=== PATIENT | male | born 1980 | race Caucasian/White ===

== ENCOUNTER 2018-12-05 10:10 | Emergency (ER) | payer SELFPAY ==
[2018-12-05] MEDS: HYDROmorphone 0.5 MG/0.5 ML Syringe IVPUSH ONE (10:48)
[2018-12-05] MEDS: Aspirin 81 MG Tab.Chew PO ONE (10:49)
[2018-12-05] MEDS: Sodium Chloride 0.9% 10 ML Syringe FLUSH PRN (10:51)
--- NOTE | 2018-12-05 13:02 | EDM.PDOC ---
ED HPI GENERAL MEDICAL PROBLEM - General Chief Complaint: Chest Pain Stated Complaint: CHEST PAIN Time Seen by Provider: 12/05/18 10:20 Source of Information: Reports: Patient History Limitations: Reports: No Limitations - History of Present Illness INITIAL COMMENTS - FREE TEXT/NARRATIVE: The patient presents with chest pain. The pain is sharp and on the right side. It radiates to his back and he is short of breath with it at times. He has no fever, chills or cough. This has been going on for about 3 weeks. 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 He has no abdominal pain, nausea or vomiting. He has no swelling or pain in his legs. He has no history of PE or DVT. He does smoke. Onset: Gradual Duration: Week(s): (3) Location: Reports: Chest Quality: Reports: Sharp Severity: Moderate Improves with: Reports: None Worsens with: Reports: None Associated Symptoms: Reports: Chest Pain, Shortness of Breath. Denies: Cough, Fever/Chills, Headaches, Nausea/Vomiting Right Chest Pain Score (Numeric/FACES): 6 - Related Data Allergies Allergy/AdvReac Type Severity Reaction Status Date / Time No Known Allergies Allergy Verified 12/05/18 10:26 Home Meds: Home Meds Hydrocodone/Acetaminophen [Hydrocodon-Acetaminophn 10-325] 1 each PO QID PRN [History] Hydrocodone/Acetaminophen [Hydrocodon-Acetaminophen 5-325] 1 - 2 each PO Q6HR PRN #10 tablet 12/05/18 [Rx] Indomethacin 50 mg PO TID PRN #30 capsule 12/05/18 [Rx] Multivitamin [Multiple Vitamins] 1 each PO DAILY 12/05/18 [History] Past Medical History Other Cardiovascular History: 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 Respiratory History: Reports: SOB Gastrointestinal History: Reports: None Genitourinary History: Reports: None Musculoskeletal History: Reports: Back Pain, Chronic Neurological History: Reports: None Psychiatric History: Reports: Anxiety, Depression Endocrine/Metabolic History: Reports: None Hematologic History: Reports: None Immunologic History: Reports: None Oncologic (Cancer) History: Reports: None Dermatologic History: Reports: Other (See Below) Other Dermatologic History: lumps on forearms, spreading to face - Infectious Disease History Infectious Disease History: Reports: Chicken Pox - Past Surgical History Head Surgeries/Procedures: Reports: None HEENT Surgical History: Reports: Oral Surgery Social & Family History - Family History Family Medical History: Noncontributory - Tobacco Use Smoking Status *Q: Current Every Day Smoker Years of Tobacco use: 20 Packs/Tins Daily: 2 - Caffeine Use Caffeine Use: Reports: Coffee - Recreational Drug Use Recreational Drug Use: Yes Drug Use in Last 12 Months: Yes Recreational Drug Type: Reports: Marijuana/Hashish Recreational Drug Use Frequency: Daily ED ROS GENERAL - Review of Systems Review Of Systems: See Below Constitutional: Reports: No Symptoms HEENT: Reports: No Symptoms Respiratory: Reports: Shortness of Breath Cardiovascular: Reports: Chest Pain Endocrine: Reports: No Symptoms GI/Abdominal: Reports: No Symptoms : Reports: No Symptoms Musculoskeletal: Reports: No Symptoms ED EXAM, GENERAL - Physical Exam Exam: See Below Exam Limited By: No Limitations General Appearance: Alert, No Apparent Distress Ears: Normal External Exam Nose: Normal Inspection Head: Atraumatic, Normocephalic Neck: Normal Inspection Respiratory/Chest: No Respiratory Distress, Lungs Clear, Normal Breath Sounds Cardiovascular: Regular Rate, Rhythm, No Edema, No Murmur GI/Abdominal: Soft, Non-Tender, No Organomegaly, No Mass Back Exam: Normal Inspection Extremities: Normal Inspection EKG INTERPRETATION EKG Date: 12/05/18 Time: 10:17 Rhythm: NSR Rate (Beats/Min): 77 [place]: Normal P-Wave: Present QRS: Normal ST-T: Elevated (Inferior, anterior and lateral leads) QT: Normal [place]/PQ Interval: 1st degree HB Course - Vital Signs Last Recorded V/S: Last Vital Signs Temp 96.7 F 12/05/18 10:19 Pulse 80 12/05/18 10:19 Resp 22 H 12/05/18 10:19 BP 184/125 H 12/05/18 10:19 Pulse Ox 96 12/05/18 10:19 - Orders/Labs/Meds Orders: Active Orders 24 hr Category Date Time Status Cardiac Monitoring [RC] . DIRECTED Care 12/05/18 10:26 Active EKG Documentation Completion [RC] STAT Care 12/05/18 10:27 Active Peripheral IV Care [RC] . DIRECTED Care 12/05/18 10:27 Active Chest 1V Frontal [CR] Stat Exams 12/05/18 10:27 Taken Sodium Chloride 0.9% [Saline Flush] Med 12/05/18 10:26 Active 10 ml FLUSH ASDIRECTED PRN Peripheral IV Insertion Adult [OM.PC] Stat Oth 12/05/18 10:26 Ordered Medication Orders Sodium Chloride (Saline Flush) 10 ml FLUSH ASDIRECTED PRN PRN Reason: Keep Vein Open Last Admin: 12/05/18 10:51 Dose: 10 ml Labs: Laboratory Tests 12/05/18 12/05/18 12/05/18 Range/Units 10:45 10:45 10:45 WBC 7.90 (4.23-9.07) K/mm3 RBC 4.99 (4.63-6.08) M/mm3 Hgb 15.1 (13.7-17.5) gm/L Hct 43.3 (40.1-51.0) % MCV 86.8 (79.0-92.2) fl MCH 30.3 (25.7-32.2) pg MCHC 34.9 (32.2-35.5) g/dl RDW Std Deviation 41.6 (35.1-43.9) fL Plt Count 256 (163-337) K/mm3 MPV 10.1 (9.4-12.3) fl Neut % (Auto) 56.4 (34.0-67.9) % Lymph % (Auto) 32.7 (21.8-53.1) % [place] % (Auto) 8.2 (5.3-12.2) % Eos % (Auto) 2.3 (0.8-7.0) Baso % (Auto) 0.3 (0.1-1.2) % Neut # (Auto) 4.46 (1.78-5.38) K/mm3 Lymph # (Auto) 2.58 (1.32-3.57) K/mm3 [place] # (Auto) 0.65 (0.30-0.82) K/mm3 Eos # (Auto) 0.18 (0.04-0.54) K/mm3 Baso # (Auto) 0.02 (0.01-0.08) K/mm3 D-Dimer, Quantitative < 0.19 L (0.19-0.50) mg/L Sodium 139 (136-145) mEq/L Potassium 4.0 (3.5-5.1) mEq/L Chloride 105 (98-107) mEq/L Carbon Dioxide 24 (21-32) mEq/L Anion Gap 14.0 (5-15) BUN 17 (7-18) mg/dL Creatinine 0.8 (0.7-1.3) mg/dL Est Cr Clr Drug Dosing 160.88 mL/min Estimated GFR (MDRD) > 60 (>60) mL/min BUN/Creatinine Ratio 21.3 H (14-18) Glucose 98 (74-106) mg/dL Calcium 9.6 (8.5-10.1) mg/dL Total Bilirubin 0.6 (0.2-1.0) mg/dL AST 23 (15-37) U/L ALT 54 (16-63) U/L Alkaline Phosphatase 51 (46-116) U/L Troponin I < 0.017 (0.00-0.056) ng/mL Total Protein 8.1 (6.4-8.2) g/dl Albumin 4.4 (3.4-5.0) g/dl Globulin 3.7 gm/dL Albumin/Globulin Ratio 1.2 (1-2) Meds: Medications Generic Name Dose Route Start Last Admin Trade Name Freq PRN Reason Stop Dose Admin Sodium Chloride 10 ml 12/05/18 10:26 12/05/18 10:51 Saline Flush FLUSH 10 ml ASDIRECTED PRN Administration Keep Vein Open Discontinued Medications Generic Name Dose Route Start Last Admin Trade Name Freq PRN Reason Stop Dose Admin Aspirin 324 mg 12/05/18 10:26 12/05/18 10:49 Aspirin PO 12/05/18 10:27 324 mg ONETIME ONE Administration Hydromorphone HCl 0.5 mg 12/05/18 10:27 12/05/18 10:48 Dilaudid IVPUSH 12/05/18 10:28 0.5 mg ONETIME ONE Administration - Re-Assessments/Exams Free Text/Narrative Re-Assessment/Exam: 12/05/18 13:00 I ordered an IV saline lock, EKG, CXR, labs, aspirin and dilaudid. His EKG shows pericarditis. His CXR looks good. His CBC and CMP look good. His troponin is negative. His D-dimer is negative. I will get him on some indomethicin and I have ordered an echo for next Monday. Departure - Departure Time of Disposition: 13:05 Disposition: Home, Self-Care 01 Condition: Good Clinical Impression: Pericarditis Qualifiers: Pericarditis type: unspecified type Chronicity: acute Qualified Code(s): I30.9 - Acute pericarditis, unspecified Prescriptions: Hydrocodone/Acetaminophen [Hydrocodon-Acetaminophen 5-325] 1 - 2 each PO Q6HR PRN #10 tablet PRN Reason: Pain Indomethacin 50 mg PO TID PRN #30 capsule PRN Reason: Pain Referrals: Erin Fernandez, [facility] [Primary Care Provider] - Additional Instructions: Take the indomethacin every 8 hours as needed for pain. Take the hydrocodone as needed for pain. I have ordered an echocardiogram for 1pm on Monday. Please return if you are worse. - My Orders Last 24 Hours: My Active Orders 12/05/18 10:26 Cardiac Monitoring [RC] . DIRECTED Sodium Chloride 0.9% [Saline Flush] 10 ml FLUSH ASDIRECTED PRN Peripheral IV Insertion Adult [OM.PC] Stat 12/05/18 10:27 EKG Documentation Completion [RC] STAT Peripheral IV Care [RC] . DIRECTED Chest 1V Frontal [CR] Stat - Assessment/Plan Last 24 Hours: My Active Orders 12/05/18 10:26 Cardiac Monitoring [RC] . DIRECTED Sodium Chloride 0.9% [Saline Flush] 10 ml FLUSH ASDIRECTED PRN Peripheral IV Insertion Adult [OM.PC] Stat 12/05/18 10:27 EKG Documentation Completion [RC] STAT Peripheral IV Care [RC] . DIRECTED Chest 1V Frontal [CR] Stat
== END 2018-12-05 13:19 | disposition home or self-care (01) ==
LOC: JD.ED 10:10
DX: I30.9 Acute pericarditis, unspecified (principal); F17.210 Nicotine dependence, cigarettes, uncomplicated
CPT/HCPCS: 36415; 71045; 80053; 84484; 85025; 85379; 93005; 96374; 99285-25; A9270-GY; J1170

== ENCOUNTER 2018-12-06 14:07 | Emergency (ER) | payer SELFPAY ==
--- NOTE | 2018-12-06 14:41 | EDM.PDOC ---
ED HPI GENERAL MEDICAL PROBLEM - General Chief Complaint: Cardiovascular Problem Stated Complaint: [facility] Time Seen by Provider: 12/06/18 14:31 - History of Present Illness INITIAL COMMENTS - FREE TEXT/NARRATIVE: 38-year-old male presents with transient dizziness. Patient was seen here yesterday diagnosed with pericarditis. Started on Indocin and given [place] for pain. Patient had an episode sit on the couch 3 had sudden onset dizziness this lasted 45 seconds to a minute. It was not associated with change in position he was just sitting there. Patient is been eating and drinking normal. His chest pain isn't significantly worse. His significant past medical history of questionable mild heart attack at age 21 and he had endocarditis one or 2 bouts when he was younger related to get in his tongue pierced. Middle Chest Pain Score (Numeric/FACES): 6 - Related Data Allergies Allergy/AdvReac Type Severity Reaction Status Date / Time No Known Allergies Allergy Verified 12/05/18 10:26 Home Meds: Home Meds Hydrocodone/Acetaminophen [Hydrocodon-Acetaminophn 10-325] 1 each PO QID PRN [History] Hydrocodone/Acetaminophen [Hydrocodon-Acetaminophen 5-325] 1 - 2 each PO Q6HR PRN #10 tablet 12/05/18 [Rx] Indomethacin 50 mg PO TID PRN #30 capsule 12/05/18 [Rx] Multivitamin [Multiple Vitamins] 1 each PO DAILY 12/05/18 [History] Past Medical History Cardiovascular History: Reports: [place], Other (See Below) Other Cardiovascular History: 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 Pt diagnosed with pericarditis on 12/05/18. Pt states he had a [place] when he was 21. Respiratory History: Reports: SOB Gastrointestinal History: Reports: None Genitourinary History: Reports: None Musculoskeletal History: Reports: Back Pain, Chronic Neurological History: Reports: None Psychiatric History: Reports: Anxiety, Depression Endocrine/Metabolic History: Reports: None Hematologic History: Reports: None Immunologic History: Reports: None Oncologic (Cancer) History: Reports: None Dermatologic History: Reports: Other (See Below) Other Dermatologic History: lumps on forearms, spreading to face - Infectious Disease History Infectious Disease History: Reports: Chicken Pox - Past Surgical History Head Surgeries/Procedures: Reports: None HEENT Surgical History: Reports: Oral Surgery Social & Family History - Family History Family Medical History: Noncontributory - Tobacco Use Smoking Status *Q: Current Every Day Smoker Years of Tobacco use: 20 Packs/Tins Daily: 1 - Caffeine Use Caffeine Use: Reports: None - Recreational Drug Use Recreational Drug Type: Reports: Marijuana/Hashish ED ROS GENERAL - Review of Systems Review Of Systems: See Below Constitutional: Reports: No Symptoms Respiratory: Denies: Shortness of Breath Cardiovascular: Reports: Chest Pain. Denies: Dyspnea on Exertion, Edema Endocrine: Reports: No Symptoms GI/Abdominal: Reports: No Symptoms : Reports: No Symptoms Neurological: Reports: No Symptoms ED EXAM, GENERAL - Physical Exam Exam: See Below Exam Limited By: No Limitations General Appearance: Alert, No Apparent Distress Head: Atraumatic, Normocephalic Neck: Normal Inspection, Supple, Non-Tender, Full Range of Motion Respiratory/Chest: No Respiratory Distress, Lungs Clear, Normal Breath Sounds Cardiovascular: Normal Peripheral Pulses, Regular Rate, Rhythm, No Edema, No Murmur, No Rub GI/Abdominal: Normal Bowel Sounds, Soft, Non-Tender Course - Vital Signs Last Recorded V/S: Last Vital Signs Temp 36.4 C 12/06/18 14:12 Pulse 78 12/06/18 14:12 Resp 16 12/06/18 14:12 BP 161/93 H 12/06/18 14:12 Pulse Ox 98 12/06/18 14:12 - Orders/Labs/Meds Orders: Active Orders 24 hr Category Date Time Status EKG Documentation Completion [RC] ASDIRECTED Care 12/06/18 14:24 Active Chest 1V Frontal [CR] Stat Exams 12/06/18 15:12 Taken EKG 12 Lead [EK] Stat Ther 12/06/18 14:23 Ordered Labs: Laboratory Tests 12/06/18 12/06/18 12/06/18 Range/Units 14:43 14:43 14:43 WBC 7.56 (4.23-9.07) K/mm3 RBC 4.66 (4.63-6.08) M/mm3 Hgb 14.0 (13.7-17.5) gm/L Hct 40.3 (40.1-51.0) % MCV 86.5 (79.0-92.2) fl MCH 30.0 (25.7-32.2) pg MCHC 34.7 (32.2-35.5) g/dl RDW Std Deviation 39.8 (35.1-43.9) fL Plt Count 216 (163-337) K/mm3 MPV 10.0 (9.4-12.3) fl Neut % (Auto) 63.3 (34.0-67.9) % Lymph % (Auto) 27.6 (21.8-53.1) % [place] % (Auto) 5.2 L (5.3-12.2) % Eos % (Auto) 3.7 (0.8-7.0) Baso % (Auto) 0.1 (0.1-1.2) % Neut # (Auto) 4.78 (1.78-5.38) K/mm3 Lymph # (Auto) 2.09 (1.32-3.57) K/mm3 [place] # (Auto) 0.39 (0.30-0.82) K/mm3 Eos # (Auto) 0.28 (0.04-0.54) K/mm3 Baso # (Auto) 0.01 (0.01-0.08) K/mm3 ESR (0-15) mm/hr Sodium 137 Cancelled (136-145) mEq/L Potassium 4.0 Cancelled (3.5-5.1) mEq/L Chloride 106 Cancelled (98-107) mEq/L Carbon Dioxide 24 Cancelled (21-32) mEq/L Anion Gap 11.0 Cancelled (5-15) BUN 28 H Cancelled (7-18) mg/dL Creatinine 1.1 Cancelled (0.7-1.3) mg/dL Est Cr Clr Drug Dosing 117.00 Cancelled mL/min Estimated GFR (MDRD) > 60 Cancelled (>60) mL/min BUN/Creatinine Ratio 25.5 H Cancelled (14-18) Glucose 102 Cancelled (74-106) mg/dL Calcium 9.1 Cancelled (8.5-10.1) mg/dL Magnesium (1.8-2.4) mg/dl Total Bilirubin 0.3 (0.2-1.0) mg/dL AST 22 (15-37) U/L ALT 55 (16-63) U/L Alkaline Phosphatase 47 (46-116) U/L Troponin I < 0.017 (0.00-0.056) ng/mL C-Reactive Protein 0.3 (<1.0) mg/dL Total Protein 7.2 (6.4-8.2) g/dl Albumin 3.9 (3.4-5.0) g/dl Globulin 3.3 gm/dL Albumin/Globulin Ratio 1.2 (1-2) 12/06/18 12/06/18 Range/Units 14:43 14:43 WBC (4.23-9.07) K/mm3 RBC (4.63-6.08) M/mm3 Hgb (13.7-17.5) gm/L Hct (40.1-51.0) % MCV (79.0-92.2) fl MCH (25.7-32.2) pg MCHC (32.2-35.5) g/dl RDW Std Deviation (35.1-43.9) fL Plt Count (163-337) K/mm3 MPV (9.4-12.3) fl Neut % (Auto) (34.0-67.9) % Lymph % (Auto) (21.8-53.1) % [place] % (Auto) (5.3-12.2) % Eos % (Auto) (0.8-7.0) Baso % (Auto) (0.1-1.2) % Neut # (Auto) (1.78-5.38) K/mm3 Lymph # (Auto) (1.32-3.57) K/mm3 [place] # (Auto) (0.30-0.82) K/mm3 Eos # (Auto) (0.04-0.54) K/mm3 Baso # (Auto) (0.01-0.08) K/mm3 ESR 12 (0-15) mm/hr Sodium (136-145) mEq/L Potassium (3.5-5.1) mEq/L Chloride (98-107) mEq/L Carbon Dioxide (21-32) mEq/L Anion Gap (5-15) BUN (7-18) mg/dL Creatinine (0.7-1.3) mg/dL Est Cr Clr Drug Dosing mL/min Estimated GFR (MDRD) (>60) mL/min BUN/Creatinine Ratio (14-18) Glucose (74-106) mg/dL Calcium (8.5-10.1) mg/dL Magnesium 2.0 (1.8-2.4) mg/dl Total Bilirubin (0.2-1.0) mg/dL AST (15-37) U/L ALT (16-63) U/L Alkaline Phosphatase (46-116) U/L Troponin I (0.00-0.056) ng/mL C-Reactive Protein (<1.0) mg/dL Total Protein (6.4-8.2) g/dl Albumin (3.4-5.0) g/dl Globulin gm/dL Albumin/Globulin Ratio (1-2) - Re-Assessments/Exams Free Text/Narrative Re-Assessment/Exam: 12/06/18 15:16 We are unable to get an echo today however I did use her bedside echo and using the subxiphoid and parasternal views he has no appreciable pericardial effusion. 12/06/18 16:59 Chest x-ray is unremarkable labs nondiagnostic inflammatory markers not elevated. We will discharge home if he continues to have episodes like this Holter monitoring should be considered with a single isolated episode wouldn't pursue it now his labs are suggestive that he might be a little on the dry side we'll discuss this with the patient. Departure - Departure Time of Disposition: 17:00 Disposition: Home, Self-Care 01 Clinical Impression: Pericarditis Qualifiers: Pericarditis type: unspecified type Chronicity: acute Qualified Code(s): I30.9 - Acute pericarditis, unspecified Forms: ED Department Discharge Additional Instructions: Return to the emergency room with any questions or problems. Continue treatment as started yesterday Follow-up in the Hospital clinic early next week [phone] - My Orders Last 24 Hours: My Active Orders 12/06/18 14:23 EKG 12 Lead [EK] Stat 12/06/18 14:24 EKG Documentation Completion [RC] ASDIRECTED 12/06/18 15:12 Chest 1V Frontal [CR] Stat - Assessment/Plan Last 24 Hours: My Active Orders 12/06/18 14:23 EKG 12 Lead [EK] Stat 12/06/18 14:24 EKG Documentation Completion [RC] ASDIRECTED 12/06/18 15:12 Chest 1V Frontal [CR] Stat
--- NOTE | 2018-12-10 08:48 | CR ---
Chest: Portable view of the chest was obtained. Comparison: Prior chest x-ray of 12/05/18. Heart size and mediastinum are normal. Lungs are clear. Bony structures are grossly intact. Impression: 1. Nothing acute is appreciated on portable chest x-ray. Diagnostic code #1
== END 2018-12-06 17:17 | disposition home or self-care (01) ==
LOC: JD.ED 14:07
DX: I30.9 Acute pericarditis, unspecified (principal); I25.2 Old myocardial infarction; F17.210 Nicotine dependence, cigarettes, uncomplicated; Z79.899 Other long term (current) drug therapy
CPT/HCPCS: 36415; 71045; 71045-26; 80053; 83735; 84484; 85025; 85652; 86140; 93005; 93010; 99283; 99285-25

== ENCOUNTER 2018-12-14 20:03 | Emergency (ER) | payer SELFPAY ==
--- NOTE | 2018-12-14 21:08 | EDM.PDOC ---
ED HPI GENERAL MEDICAL PROBLEM - General Chief Complaint: Cardiovascular Problem Stated Complaint: HEART PALPATATIONS/DIZZY Time Seen by Provider: 12/14/18 20:22 Source of Information: Reports: Patient, Significant Other (Girlfriend) History Limitations: Reports: No Limitations - History of Present Illness INITIAL COMMENTS - FREE TEXT/NARRATIVE: Mr. Casanova is a 38-year-old man with a past medical history significant for hypertension, dyslipidemia, anxiety, and depression, all untreated. He also has chronic lower back pain, for which he sees a pain cytology laboratory manager. He states that he developed the sensation of a fast irregular, and hard heartbeat, along with lightheaded when standing, that developed about one hour prior to coming to the ED. He states that the palpitations persist even now, here in the ED, although it is noted that he has a normal sinus rhythm at 80 bpm on the council member. Review of prior medical records finds that the patient has been to this emergency department on 5 prior occasions with similar symptoms since 2018. He was diagnosed with pericarditis on 12/05/2018 and prescribed indomethacin, however, he states that his symptoms have not improved. The patient has not followed up with the PCP, citing lack of medical insurance. The patient does not have a PCP. His pain cytology laboratory manager is Erin Fernandez NP. Left Chest Pain Score (Numeric/FACES): 4 - Related Data Allergies Allergy/AdvReac Type Severity Reaction Status Date / Time No Known Allergies Allergy Verified 12/14/18 20:16 Home Meds: Home Meds Hydrocodone/Acetaminophen [Hydrocodon-Acetaminophn 10-325] 1 each PO QID PRN [History] Indomethacin 50 mg PO TID PRN #30 capsule 12/05/18 [Rx] Multivitamin [Multiple Vitamins] 1 each PO DAILY 12/05/18 [History] Past Medical History Cardiovascular History: Reports: Bacterial Endocarditis (21 years old), High Cholesterol (untreated), Hypertension (untreated) Psychiatric History: Reports: Anxiety (untreated), Depression (untreated) - Infectious Disease History Infectious Disease History: Reports: Chicken Pox - Past Surgical History HEENT Surgical History: Reports: Oral Surgery (wisdom teeth extraction) Cardiovascular Surgical History: Reports: Other (See Below) (coronary angiogram at 21 years old -> normal) Social & Family History - Family History Family Medical History: Noncontributory - Tobacco Use Smoking Status *Q: Current Every Day Smoker Years of Tobacco use: 24 Packs/Tins Daily: 1 Packs/Tins Daily Comment: Down from 1.5 ppd - Caffeine Use Caffeine Use: Reports: None - Alcohol Use Alcohol Use History: Yes Alcohol Use Frequency: Rarely - Recreational Drug Use Recreational Drug Use: Yes Drug Use in Last 12 Months: Yes Recreational Drug Type: Reports: LSD (Acid) (last took 2017), Marijuana/Hashish (smokes daily), Methamphetamine (smoked once when 24 years old), Psilocybin ( Mushrooms) (last ate 2018), Other (see below) (Opioids - takes daily) - Living Situation & Occupation Living situation: Reports: Single, with Significant Other (Girlfriend) Occupation: Employed (Cook at [employer]) ED ROS GENERAL - Review of Systems Review Of Systems: ROS reveals no pertinent complaints other than HPI. Musculoskeletal: Reports: Back Pain (chronic) ED EXAM, GENERAL - Physical Exam Exam: See Below Exam Limited By: No Limitations General Appearance: Alert, WD/WN, No Apparent Distress Eye Exam: Bilateral Eye: EOMI, Normal Inspection Ears: Normal External Exam, Hearing Grossly Normal Nose: Normal Inspection Throat/Mouth: Normal Inspection, Normal Lips, Normal Voice, No Airway Compromise Head: Atraumatic, Normocephalic Neck: Normal Inspection, Full Range of Motion Respiratory/Chest: No Respiratory Distress, Lungs Clear, Normal Breath Sounds, No Accessory Muscle Use, Other (Reproducible tenderness to the patient of the left pectoralis muscle. Pain is also reproduced somewhat by having the patient press his hands together with his arms outstretched in front of his chest.) Cardiovascular: Normal Peripheral Pulses, Regular Rate, Rhythm, No Edema, No Gallop, No JVD, No Murmur, No Rub Peripheral Pulses: 4+: Radial (L), Radial (R) GI/Abdominal: Normal Bowel Sounds, Soft, Non-Tender, No Organomegaly, No Distention, No Abnormal Bruit, No Mass (Male) Exam: Deferred Rectal (Males) Exam: Deferred Back Exam: Normal Inspection, Full Range of Motion, NT Extremities: Normal Inspection, Normal Range of Motion, No Pedal Edema, Normal Capillary Refill Neurological: Alert, Oriented, Normal Cognition, No Motor/Sensory Deficits Psychiatric: Normal Affect Skin Exam: Warm, Dry, Intact, Normal Color, No Rash EKG INTERPRETATION EKG Date: 12/14/18 Time: 20:13 Rhythm: NSR Rate (Beats/Min): 72 [place]: RAD-Right [place] Deviation P-Wave: Present (1 AVB) QRS: Wide (LPFB? Late transition.) ST-T: Normal (Anterolateral J-point elevation, but no T-wave inversions or ischemic changes.) QT: Normal Comparison: No Change (12/06/2018) Course - Vital Signs Last Recorded V/S: Last Vital Signs Temp 36.2 C 12/14/18 20:12 Pulse 77 12/14/18 20:12 Resp 14 12/14/18 20:12 BP 166/96 H 12/14/18 20:12 Pulse Ox 96 12/14/18 20:12 Orthostatic Blood Pressure [ 136/88 Standing] Orthostatic Blood Pressure [ 133/75 Supine] - Re-Assessments/Exams Free Text/Narrative Re-Assessment/Exam: 12/14/18 21:04 Because of the patient's complaint of palpitations, an ECG was obtained at triage. It demonstrates some mild J-point elevation in leads V1-V6, but none seen in the inferior or high-lateral leads. Because of the patient's complaint of lightheadedness, particularly when standing, I ordered orthostatics. They are negative. 12/14/18 21:24 Since 10/10/2018, the patient has been seen in this emergency department on numerous occasions for the same complaint - this is now his 6th visit - and has had at various times a CBC, CMP, magnesium level, troponin level, CRP, D-dimer, TSH level, chest x-ray, and ECG performed, all of which have been unremarkable. He was told on 12/05/2018 that he had pericarditis, however, after reviewing his ECG and prior evaluations, I don't believe that is the case. His CRP has been undetectably low, which would not be consistent with viral pericarditis, and he underwent a bedside echocardiogram on 12/06/2018, which was negative. He did not undergo the outpatient echocardiogram that was scheduled for him on 12/10/2018. Additionally, he reports no improvement in his symptoms despite taking indomethacin. Importantly, however, is that his symptoms are not really consistent with pericarditis. He reports palpitations and lightheadedness with standing. The chest pain that he initially reported was on the right side of his chest, not central or left-sided, although it has since now moved to his far left side, however, it is reproducible with palpation of his left pectoralis muscle. The patient complains of palpitations, a fast, irregular, hard sensation, and stated that he was experiencing it while I was examining him , yet he had a normal sinus rhythm at 80 bpm on the monitor at the time, and none of his ECGs that he has had performed so far have shown anything other than a normal sinus rhythm. I believe that the patient's chest pain is musculoskeletal in etiology. I cannot explain his palpitations and dizziness, but they do not appear to be physiologic in origin. They are likely related to his untreated anxiety. I do not see any testing that has been missed here in the emergency department, therefore I don't see anything else that I can offer him, other than to again recommend that he follow-up in the outpatient setting. 12/14/18 22:54 The above was discussed with the patient and his girlfriend. I explained that the diagnostic ability of the emergency department has been exhausted, and further workup will need to be done as an outpatient. I will have case management contact the patient on 12/17/2018, to see if some arrangements to be made for the patient to see a PCP, or at least discuss payment options. Departure - Departure Time of Disposition: 22:58 Disposition: Home, Self-Care 01 Condition: Good Clinical Impression: Musculoskeletal chest pain, Palpitations, Dizziness - Discharge Information *PRESCRIPTION DRUG MONITORING PROGRAM REVIEWED*: Not Applicable *COPY OF PRESCRIPTION DRUG MONITORING REPORT IN PATIENT KHOI: Not Applicable Instructions: Nonspecific Chest Pain, [id number], Palpitations, [id number] , Musculoskeletal Pain, Dizziness, [id number] Referrals: Holger Barajas MD [Physician] - Erin Fernandez NP [Ordering Only Provider] - Forms: ED Department Discharge Additional Instructions: You were seen in the emergency room for recurrent palpitations, dizziness, and left-sided chest pain. Workup in the ER included positional blood pressure checks and an ECG, both of which were normal. You are not dehydrated, and no abnormalities were found on your ECG. On examination, your left-sided chest pain was reproducible by pressing on your left pectoralis muscle, indicating a musculoskeletal cause. The cause of your palpitations and dizziness is unclear, but they do not appear to be physiologic, that is, while you are feeling an irregular heart beat, your heart rate was completely normal on the newspaper reporter and on your ECGs. Your prior medical records and tests were reviewed, and no abnormalities have been found. As discussed, the diagnostic ability of the emergency department has been exhausted. You need to see a PCP. We recommend that you follow-up with Dr. Holger Hernandez in the clinic at the next available appointment. Someone from case management will contact you on 12/17/2018, to discuss payment options. If any other problems, please do not hesitate to return to the ER.
== END 2018-12-14 23:16 | disposition home or self-care (01) ==
LOC: JD.ED 20:03
DX: R00.2 Palpitations (principal); R07.89 Other chest pain; I10 Essential (primary) hypertension; F17.210 Nicotine dependence, cigarettes, uncomplicated
CPT/HCPCS: 93005; 99284-25

== ENCOUNTER 2019-04-29 09:45 | Emergency (ER) | payer BC ==
[2019-04-29] MEDS ORDERED: Alum Hydrox/Mag Hydrox/Simeth 30 ML, Lidocaine 2% 15 ML PO ONE ×2 (10:46)
[2019-04-29] MEDS ORDERED: Sodium Chloride 0.9% 1,000 ML IV ONE (11:23)
--- NOTE | 2019-04-29 11:31 | EDM.PDOC ---
ED HPI GENERAL MEDICAL PROBLEM - General Chief Complaint: Chest Pain Stated Complaint: CHEST PAIN/SOB Time Seen by Provider: 04/29/19 10:56 Source of Information: Reports: Patient, RN Notes Reviewed History Limitations: Reports: No Limitations - History of Present Illness INITIAL COMMENTS - FREE TEXT/NARRATIVE: Patient is a 39-year-old male who presents to the ED for the evaluation of some ongoing chest pain or shortness of breath. Patient notes that this is been going on for a few months, but he has not had it evaluated by a doctor before. He notes that it did worsen over the last few days however. He is complaining of shortness of breath that seems to be constant, there are no modifiers to this however he states when he does move around it is worse. Chest pain is described as sharp at times with also a dull ache/pressure component that is there pretty much all the time as well. He notes this is in his mid sternal chest and radiates to his mid left chest. He can appreciate some tingling in his fingers at times with this as well. He states he had a little bit of nausea this morning, but states this is somewhat normal for him as he takes a lot of pain meds and he normally has nausea. The patient states that recently when he goes from a sitting to standing position, he gets increased shortness of breath, he states that he can feel his heartbeat in his ears, and has slight dizziness and ear ringing upon standing. He believes that his heart rate does shoot up at times anywhere from 120-130 when he stands. He further notes a issue with blood pressure that is been elevated, but he takes no medication for this. At initial time of triage his blood pressure was 176/117, but after resting in the ER waiting for evaluation, his blood pressure is 137/86. Patient notes a history of prior pericarditis, but he states he did not have this evaluated or treated as he did not have insurance at the time. Patient thought maybe had a little bit of heartburn so he was given a GI cocktail at time of triage as well, he states that this helped the heartburn type feelings, but is still having the pressure sensation in his chest. He notes that the pressure feels better when he is sitting up or inclined, and worsens with laying. Chest Pain Score (Numeric/FACES): 6 - Related Data Allergies Allergy/AdvReac Type Severity Reaction Status Date / Time No Known Allergies Allergy Verified 04/29/19 09:53 Home Meds: Home Meds Hydrocodone/Acetaminophen [Hydrocodon-Acetaminophn 10-325] 10 - 325 mg PO ASDIRECTED PRN 10/10/18 [History] Cyclobenzaprine [Flexeril] 10 mg PO BEDTIME 04/29/19 [History] Past Medical History Cardiovascular History: Reports: Bacterial Endocarditis, High Cholesterol, Hypertension, Other (See Below) Other Cardiovascular History: 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 Pt diagnosed with pericarditis on 12/05/18. Pt states he had a IL when he was 21. Respiratory History: Reports: SOB Gastrointestinal History: Reports: GERD Musculoskeletal History: Reports: Back Pain, Chronic, Fracture Neurological History: Reports: Concussion Psychiatric History: Reports: Anxiety, Depression Dermatologic History: Reports: Other (See Below) Other Dermatologic History: lumps on forearms, spreading to face - Infectious Disease History Infectious Disease History: Reports: Chicken Pox - Past Surgical History HEENT Surgical History: Reports: Oral Surgery Other HEENT Surgeries/Procedures: wisdom teeth removed. 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 Denies: Fever Respiratory: Reports: Shortness of Breath (constant). Denies: Cough Cardiovascular: Reports: Chest Pain (Mid central CP to L mid axillary CP), Blood Pressure Problem (HTN for years, untreated), Dyspnea on Exertion, Palpitations (feels heart racing from time to time) GI/Abdominal: Reports: Nausea. Denies: Abdominal Pain, Constipation, Diarrhea, Vomiting : Denies: Dysuria Musculoskeletal: Reports: Back Pain (chronic) Neurological: Reports: Tingling (into L arm) ED EXAM, GENERAL - Physical Exam Exam: See Below Exam Limited By: No Limitations General Appearance: Alert, WD/WN, No Apparent Distress Eye Exam: Bilateral Eye: EOMI, Normal Inspection, PERRL Nose: Normal Inspection Throat/Mouth: Normal Inspection, Normal Lips, Normal Teeth, Normal Gums, Normal Oropharynx, Normal Voice, No Airway Compromise Head: Atraumatic, Normocephalic Neck: Normal Inspection Respiratory/Chest: No Respiratory Distress, Lungs Clear, Normal Breath Sounds, No Accessory Muscle Use, Chest Non-Tender Cardiovascular: Normal Peripheral Pulses, Regular Rate, Rhythm, No Edema, No Murmur Peripheral Pulses: 3+: Radial (L), Radial (R) GI/Abdominal: Normal Bowel Sounds, Soft, Non-Tender, No Distention, No Mass Extremities: Normal Inspection, Normal Capillary Refill Neurological: Alert, Oriented, Normal Cognition, No Motor/Sensory Deficits Psychiatric: Normal Affect, Normal Mood Skin Exam: Warm, Dry, Intact, Normal Color, No Rash EKG INTERPRETATION EKG Date: 04/29/19 Time: 09:55 Rhythm: NSR Rate (Beats/Min): 97 [place]: RAD-Right [place] Deviation P-Wave: Present QRS: Normal ST-T: Normal QT: Normal Comparison: NA - No Prior EKG EKG Interpretation Comments: No acute ischemic changes noted by myself or Dr. Yepez. Course - Vital Signs Last Recorded V/S: Last Vital Signs Temp 98.3 F 04/29/19 09:50 Pulse 96 04/29/19 09:50 Resp 14 04/29/19 09:50 BP 176/117 H 04/29/19 09:50 Pulse Ox 99 04/29/19 09:50 - Orders/Labs/Meds Orders: Active Orders 24 hr Category Date Time Status EKG 12 Lead [EKG Documentation Completion] [RC] STAT Care 04/29/19 10:19 Active Holter Monitor 48 Hours [RC] .PRN Care 04/29/19 14:33 Active Labs: Laboratory Tests 04/29/19 04/29/19 04/29/19 Range/Units 10:05 10:05 13:31 WBC 7.68 (4.23-9.07) K/mm3 RBC 4.94 (4.63-6.08) M/mm3 Hgb 15.2 (13.7-17.5) gm/dl Hct 43.4 (40.1-51.0) % MCV 87.9 (79.0-92.2) fl MCH 30.8 (25.7-32.2) pg MCHC 35.0 (32.2-35.5) g/dl RDW Std Deviation 40.5 (35.1-43.9) fL Plt Count 235 (163-337) K/mm3 MPV 10.3 (9.4-12.3) fl Neut % (Auto) 45.2 (34.0-67.9) % Lymph % (Auto) 40.5 (21.8-53.1) % [place] % (Auto) 9.0 (5.3-12.2) % Eos % (Auto) 4.6 (0.8-7.0) Baso % (Auto) 0.4 (0.1-1.2) % Neut # (Auto) 3.48 (1.78-5.38) K/mm3 Lymph # (Auto) 3.11 (1.32-3.57) K/mm3 [place] # (Auto) 0.69 (0.30-0.82) K/mm3 Eos # (Auto) 0.35 (0.04-0.54) K/mm3 Baso # (Auto) 0.03 (0.01-0.08) K/mm3 Sodium 139 (136-145) mEq/L Potassium 4.1 (3.5-5.1) mEq/L Chloride 103 (98-107) mEq/L Carbon Dioxide 24 (21-32) mEq/L Anion Gap 16.1 H (5-15) BUN 17 (7-18) mg/dL Creatinine 0.9 (0.7-1.3) mg/dL Est Cr Clr Drug Dosing 137.97 mL/min Estimated GFR (MDRD) > 60 (>60) mL/min BUN/Creatinine Ratio 18.9 H (14-18) Glucose 99 (74-106) mg/dL Calcium 10.2 H (8.5-10.1) mg/dL Total Bilirubin 0.2 (0.2-1.0) mg/dL AST 27 (15-37) U/L ALT 69 H (16-63) U/L Alkaline Phosphatase 39 L (46-116) U/L CK-MB (CK-2) 1.2 (0-3.6) ng/ml Troponin I < 0.017 < 0.017 (0.00-0.056) ng/mL Total Protein 7.9 (6.4-8.2) g/dl Albumin 4.1 (3.4-5.0) g/dl Globulin 3.8 gm/dL Albumin/Globulin Ratio 1.1 (1-2) Meds: Medications Discontinued Medications Generic Name Dose Route Start Last Admin Trade Name Catrachita PRN Reason Stop Dose Admin Al Hydroxide/Mg Hydroxide 30 0 ml 04/29/19 10:46 04/29/19 10:50 ml/ Lidocaine HCl 15 ml PO 04/29/19 10:47 45 ml ONETIME ONE Administration Sodium Chloride 1,000 mls @ 999 mls/hr 04/29/19 11:23 04/29/19 11:33 Normal Saline IV 04/29/19 12:23 999 mls/hr ONETIME ONE Administration - Re-Assessments/Exams Free Text/Narrative Re-Assessment/Exam: 04/29/19 11:32 Patient presents to the ED for the evaluation of chest pain or shortness of breath. EKG done at time of triage does not show any obvious ST ischemia. The patient's labs done at time of triage also demonstrate no obvious abnormalities , troponin is normal and CK-MB is also normal. At this time his pain does sound kind of like pericarditis in nature again however due to him saying that he gets dizzy and lightheaded when he stands, I will give him a bag IV fluids see if this does not help. He states that the GI cocktail helped the heartburn but did not help the chest burning sensation. I will likely discharge him home with a Holter monitor, after a second set of troponins is normal, and have him follow-up with a primary care provider of choice so he can get a stress test ordered, and have a further cardiology work-up. 04/29/19 14:38 Patient second troponin is negative. Will discharge him home with a 48-hour Holter, and he will have a follow-up appoint with Tiffany Neely in the clinic next week Monday the at 9:15am. Departure - Departure Time of Disposition: 14:39 Disposition: Home, Self-Care 01 Condition: Fair Clinical Impression: Chest pain in adult Instructions: Nonspecific Chest Pain, [id number], Aspirin and Your Heart Referrals: Erin Fernandez NP [Primary Care Provider] - Forms: ED Department Discharge, ED Return to Work/School Form Additional Instructions: You were evaluated in the ER today regarding your ongoing chest pain. Your work-up at today's ER visit was unremarkable for any sort of ischemic heart issues that you may have, you are not suffering from a myocardial infarction today. You were provided with a Holter monitor, to wear over the next 48 hours to monitor your heart rhythm. You will need to follow-up with a family practice provider, an appointment was made for you with Tiffany Neely for May 08, they request that you check in at 9:15 AM to go over paperwork and questions, as this is your first visit. Further recommend you talk with her regarding outpatient stress tests for further cardiac evaluation as warranted. You may try to take 600 mg ibuprofen every 6 hours for further chest discomfort. Do not exceed 3200 mg of ibuprofen in a 24-hour time span. Please return to the ER at any time however if her symptoms change or worsen. Sepsis Event Note - Evaluation Sepsis Screening Result: No Definite Risk - Focused Exam Vital Signs: Vital Signs Temp Pulse Resp BP Pulse Ox 04/29/19 09:50 98.3 F 96 14 176/117 H 99 Date Exam was Performed: 04/29/19 Time Exam was Performed: 15:18 - My Orders Last 24 Hours: My Active Orders 04/29/19 10:19 EKG 12 Lead [EKG Documentation Completion] [RC] STAT 04/29/19 14:33 Holter Monitor 48 Hours [RC] .PRN - Assessment/Plan Last 24 Hours: My Active Orders 04/29/19 10:19 EKG 12 Lead [EKG Documentation Completion] [RC] STAT 04/29/19 14:33 Holter Monitor 48 Hours [RC] .PRN
--- NOTE | 2019-04-29 11:54 | CR ---
Chest: Two views of the chest were obtained. Comparison: Prior chest x-ray of 12/06/18. Heart size and mediastinum are normal. Lungs are clear. Bony structures appear within normal limits. Impression: 1. Nothing acute is identified on two-view chest x-ray. Diagnostic code #1 This report was dictated in [place] Standard Time
== END 2019-04-29 15:21 | disposition home or self-care (01) ==
LOC: JD.ED 09:45
DX: R07.9 Chest pain, unspecified (principal); I10 Essential (primary) hypertension; I25.2 Old myocardial infarction; F17.210 Nicotine dependence, cigarettes, uncomplicated
CPT/HCPCS: 36415; 71046; 80053; 82553; 84484; 85025; 93005; 93225; 93226; 96360; 99285; A9270; J7030; 93010; 99284

== ENCOUNTER 2019-05-02 21:58 | Emergency (ER) | payer BC ==
--- NOTE | 2019-05-03 00:44 | EDM.PDOC ---
ED HPI GENERAL MEDICAL PROBLEM - General Chief Complaint: Cardiovascular Problem Stated Complaint: sob elevated heart rate and blood pressure Time Seen by Provider: 05/02/19 23:55 Source of Information: Reports: Patient, Significant Other (Girlfriend) History Limitations: Reports: No Limitations - History of Present Illness INITIAL COMMENTS - FREE TEXT/NARRATIVE: Mr. Casanova is a very pleasant 39-year-old man with a past medical history significant for untreated hypertension, elevated cholesterol, anxiety and depression, along with chronic pain, for which he is on a fentanyl patch and oral [place], who states that he developed dyspnea and rapid palpitations while at work today. He states that he has been experiencing similar symptoms over the past 2 weeks, but that they have been worse this week. He states that he developed a headache around 09:00, along with facial tingling and a rushing sound in his right ear. He developed tunnel vision, and felt like he might faint. No nausea or vomiting. No recent cough. The patient states that he thought his blood pressure was elevated, and that that was what was causing his symptoms. Review of prior medical records finds that this is the patient's 8th visit to this ED with the same or similar symptoms since 10/10/2018, with the most recent visit on 04/29/2019. At that visit, the patient was discharged home with a 48- hour Holter monitor. He states that he already turned the monitor in, and he is to follow-up with Rowena HOLDEN, on 05/08/2019 at 09:15, to get the results. The patient states that he has been told in the past to talk to his PCP about getting treatment for his anxiety, however, he does not have a PCP, and his pain management provider told him that she does not prescribe medicines for anxiety. He states that he recently acquired medical insurance, therefore he can now follow-up with a PCP. Here in the ED, the patient's BP is noted to be elevated at 182/107, with a HR of 107 bpm. The patient does not have a PCP, but, as above, he is scheduled to follow-up with ADINA Kumar, on 05/08/2019 at 09:15. His pain management provider is rEin Fernandez NP. Headache Pain Score (Numeric/FACES): 1 - Related Data Allergies Allergy/AdvReac Type Severity Reaction Status Date / Time No Known Allergies Allergy Verified 04/29/19 09:53 Home Meds: Home Meds Hydrocodone/Acetaminophen [Hydrocodon-Acetaminophn 10-325] 10 - 325 mg PO ASDIRECTED PRN 10/10/18 [History] Cyclobenzaprine [Flexeril] 10 mg PO BEDTIME 04/29/19 [History] fentaNYL [Fentanyl] 1 each TD ASDIRECTED 05/02/19 [History] Past Medical History Cardiovascular History: Reports: Bacterial Endocarditis (when 21 yrs old), High Cholesterol (untreated), Hypertension (untreated), Other (See Below) ( Pericarditis) Other Cardiovascular History: 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 Pt diagnosed with pericarditis on 12/05/18. Pt states he had a NH when he was 21. Respiratory History: Reports: SOB Gastrointestinal History: Reports: GERD Musculoskeletal History: Reports: Back Pain, Chronic, Fracture Neurological History: Reports: Concussion Psychiatric History: Reports: Anxiety (untreated), Depression (untreated) Dermatologic History: Reports: Other (See Below) Other Dermatologic History: lumps on forearms, spreading to face - Infectious Disease History Infectious Disease History: Reports: Chicken Pox - Past Surgical History HEENT Surgical History: Reports: Oral Surgery (wisdom teeth extraction) Cardiovascular Surgical History: Reports: Other (See Below) (Coronary angiogram at 21 yrs old -> normal) Social & Family History - Family History Family Medical History: Noncontributory - Tobacco Use Smoking Status *Q: Current Every Day Smoker Years of Tobacco use: 25 Packs/Tins Daily: 1 Packs/Tins Daily Comment: Down from 1.5 ppd - Caffeine Use Caffeine Use: Reports: Coffee - Alcohol Use Alcohol Use History: Yes Alcohol Use Frequency: Rarely - Recreational Drug Use Recreational Drug Use: Yes Drug Use in Last 12 Months: Yes Recreational Drug Type: Reports: LSD (Acid) (last took 2017), Marijuana/Hashish (last smoked Oct 2018), Methamphetamine (smoked once when 24 yrs old), Psilocybin (Mushrooms) (last took 2017), Other (see below) (Takes opioids daily) - Living Situation & Occupation Living situation: Reports: Single, with Significant Other (Girlfriend) Occupation: Employed ([employer]) ED ROS GENERAL - Review of Systems Review Of Systems: Comprehensive ROS is negative, except as noted in HPI. ED EXAM, GENERAL - Physical Exam Exam: See Below Exam Limited By: No Limitations General Appearance: Alert, WD/WN, No Apparent Distress Eye Exam: Bilateral Eye: EOMI, Normal Inspection Ears: Normal External Exam, Normal Canal, Hearing Grossly Normal, Normal TMs Nose: Normal Inspection, Normal Mucosa, No Blood Throat/Mouth: Normal Inspection, Normal Lips, Normal Teeth, Normal Gums, Normal Oropharynx, Normal Voice, No Airway Compromise Head: Atraumatic, Normocephalic Neck: Normal Inspection, Supple, Non-Tender, Full Range of Motion. No: Lymphadenopathy (L), Lymphadenopathy (R) Respiratory/Chest: No Respiratory Distress, Lungs Clear, Normal Breath Sounds, No Accessory Muscle Use. No: Decreased Breath Sounds, Crackles, Rhonchi, Wheezing, Stridor, Prolonged Expiration Cardiovascular: Normal Peripheral Pulses, Regular Rate, Rhythm, No Edema, No Gallop, No JVD, No Murmur, No Rub Peripheral Pulses: 4+: Radial (L), Radial (R) GI/Abdominal: Normal Bowel Sounds, Soft, Non-Tender, No Organomegaly, No Distention, No Abnormal Bruit, No Mass (Male) Exam: Deferred Rectal (Males) Exam: Deferred Back Exam: Normal Inspection, Full Range of Motion, NT Extremities: Normal Inspection, Normal Range of Motion, No Pedal Edema, Normal Capillary Refill Neurological: Alert, Oriented, Normal Cognition, No Motor/Sensory Deficits Psychiatric: Normal Affect Skin Exam: Warm, Dry, Intact, Normal Color, No Rash EKG INTERPRETATION EKG Date: 05/02/19 Time: 22:07 Rhythm: NSR Rate (Beats/Min): 97 [place]: RAD-Right [place] Deviation (likely 2 LPFB) P-Wave: Present (1 AVB) QRS: Normal ST-T: Normal QT: Normal Comparison: No Change (04/29/2019) Course - Vital Signs Last Recorded V/S: Last Vital Signs Temp 37.2 C 05/02/19 22:03 Pulse 107 H 05/02/19 22:03 Resp 16 05/02/19 22:03 BP 182/107 H 05/02/19 22:03 Pulse Ox 97 05/02/19 22:03 - Orders/Labs/Meds Labs: Laboratory Tests 05/02/19 05/02/19 Range/Units 23:48 23:48 WBC 8.69 (4.23-9.07) K/mm3 RBC 4.51 L (4.63-6.08) M/mm3 Hgb 13.8 (13.7-17.5) gm/dl Hct 40.2 (40.1-51.0) % MCV 89.1 (79.0-92.2) fl MCH 30.6 (25.7-32.2) pg MCHC 34.3 (32.2-35.5) g/dl RDW Std Deviation 41.2 (35.1-43.9) fL Plt Count 250 (163-337) K/mm3 MPV 10.0 (9.4-12.3) fl Neut % (Auto) 48.9 (34.0-67.9) % Lymph % (Auto) 37.7 (21.8-53.1) % Bureau % (Auto) 7.8 (5.3-12.2) % Eos % (Auto) 5.2 (0.8-7.0) Baso % (Auto) 0.2 (0.1-1.2) % Neut # (Auto) 4.24 (1.78-5.38) K/mm3 Lymph # (Auto) 3.28 (1.32-3.57) K/mm3 Bureau # (Auto) 0.68 (0.30-0.82) K/mm3 Eos # (Auto) 0.45 (0.04-0.54) K/mm3 Baso # (Auto) 0.02 (0.01-0.08) K/mm3 Sodium 136 (136-145) mEq/L Potassium 3.5 (3.5-5.1) mEq/L Chloride 100 (98-107) mEq/L Carbon Dioxide 24 (21-32) mEq/L Anion Gap 15.5 H (5-15) BUN 26 H (7-18) mg/dL Creatinine 1.0 (0.7-1.3) mg/dL Est Cr Clr Drug Dosing 124.17 mL/min Estimated GFR (MDRD) > 60 (>60) mL/min BUN/Creatinine Ratio 26.0 H (14-18) Glucose 141 H (74-106) mg/dL Calcium 8.8 (8.5-10.1) mg/dL Total Bilirubin 0.3 (0.2-1.0) mg/dL AST 24 (15-37) U/L ALT 67 H (16-63) U/L Alkaline Phosphatase 45 L (46-116) U/L Troponin I < 0.017 (0.00-0.056) ng/mL Total Protein 7.3 (6.4-8.2) g/dl Albumin 3.8 (3.4-5.0) g/dl Globulin 3.5 gm/dL Albumin/Globulin Ratio 1.1 (1-2) - Re-Assessments/Exams Free Text/Narrative Re-Assessment/Exam: 05/03/19 00:43 This is the 8th visit to this ED by this patient with the same or similar symptoms, which are entirely consistent with hyperventilation syndrome due to untreated anxiety. Prior workups have all been negative. He was last seen in this ED just 3 days ago, on 04/29/2019. Workup was negative, and he was discharged home with a 48-hour Holter monitor, which he states he has already turned in. He has an appointment to follow-up in the clinic on Monday, 2019 at 09:15. For today's purposes, the patient's nurse ordered a CBC, CMP, troponin, a chest x-ray, and an ECG. The patient had 2 undetectably low D-dimers, on 10/10/2018 and 12/05/2018, therefore, since his symptoms are very similar to those previous presentations, I don't see a need to repeat a D-dimer again today. 05/03/19 00:45 The patient's CBC is unremarkable. His CMP is remarkable for an anion gap slightly elevated at 15.5, but with a bicarbonate normal at 24. His BUN is mildly elevated at 26, but his creatinine is normal at 1.0. His blood glucose is elevated 141. His ALT is slightly elevated at 67, with an AST normal at 24. The remainder of his CMP is unremarkable. His troponin is undetectably low. 2-view chest radiograph appears to be grossly normal. The cardiac silhouette is within normal limits. No pulmonary vascular congestion. No pleural effusions. No focal infiltrate. No pneumothorax. Formal read per the Radiologist pending. Reviewing prior chemistry panels, I see that the patient had a blood glucose of 117 on 10/10/2018, otherwise, his blood glucoses have been normal. This indicates that the patient may have prediabetes. I will discharge the patient home with the recommendation that he follow up at his previously scheduled appointment on 05/08/2019, not only to discuss his Holter monitor findings, but also to discuss treatment options for anxiety, and an evaluation for diabetes. In the meantime, I will have the patient go to the ADA website to learn about a low glycemic index diet. 05/03/19 01:06 The above was discussed with the patient and his girlfriend. The patient expressed great relief at getting answers to questions. Departure - Departure Time of Disposition: 01:06 Disposition: Home, Self-Care 01 Condition: Good Clinical Impression: Hyperventilation syndrome, Prediabetes Instructions: Prediabetes, Hyperventilation Referrals: Erin Fernandez NP [Primary Care Provider] - Rowena Neely PA-C [Physician [employer]] - Forms: ED Department Discharge Additional Instructions: You were seen in the emergency room for recurrent shortness of breath and rapid palpitations, along with facial tingling, a rushing sound in your right ear, double vision, and feeling faintish. Workup in the ER included blood work, a chest x-ray, and an ECG. The entire workup was unremarkable, with the exception that your blood glucose was found to be elevated at 141. Reviewing prior medical records, your blood glucoses have always been within normal limits, with the exception of a blood sugar of 117 on 10/10/2018. This indicates that you have a condition called prediabetes. We recommend that you go to the [place] [employer] website, and click on the section "What to eat", to learn about a low glycemic index diet. Follow-up with ADINA Kumar, at your previously scheduled appointment this coming 05/08/2019, at 9:15 am. At that visit, you can go over your Holter monitor results, have her evaluate you for diabetes, and discuss treatment options for anxiety. If any other problems, please do not hesitate to return to the ER. Sepsis Event Note - Evaluation Sepsis Screening Result: No Definite Risk - Focused Exam Date Exam was Performed: 05/08/19 Time Exam was Performed: 13:13
--- NOTE | 2019-05-03 08:33 | CR ---
Chest: Two views of the chest were obtained. Comparison: Prior chest x-ray of 04/29/19. Heart size and mediastinum are normal. Lungs are clear with no acute parenchymal change. Bony structures are unremarkable. Impression: 1. Nothing acute is seen on two-view chest x-ray. Diagnostic code #1 This report was dictated in [place] Standard Time
== END 2019-05-03 01:24 | disposition home or self-care (01) ==
LOC: JD.ED 21:58
DX: F45.8 Other somatoform disorders (principal); R73.03 Prediabetes; E78.00 Pure hypercholesterolemia, unspecified; I10 Essential (primary) hypertension; I25.2 Old myocardial infarction; K21.9 Gastro-esophageal reflux disease without esophagitis; F41.9 Anxiety disorder, unspecified; F32.9 Major depressive disorder, single episode, unspecified; F17.210 Nicotine dependence, cigarettes, uncomplicated
CPT/HCPCS: 36415; 71046; 71046-26; 80053; 84484; 85025; 93005; 93010; 99284; 99285-25

== ENCOUNTER 2019-05-26 23:46 | Emergency (ER) | payer BC ==
[2019-05-27] MEDS ORDERED: Sodium Chloride 0.9% 1,000 ML IV SCH (02:30)
--- NOTE | 2019-05-27 02:30 | EDM.PDOC ---
ED HPI GENERAL MEDICAL PROBLEM - General Chief Complaint: ENT Problem Stated Complaint: THROAT AND EAR PAIN Time Seen by Provider: 05/27/19 02:09 Source of Information: Reports: Patient, Significant Other (Girlfriend) History Limitations: Reports: No Limitations - History of Present Illness INITIAL COMMENTS - FREE TEXT/NARRATIVE: Mr. Casanova is a very pleasant 39-year-old man with a past medical history significant for hypertension, untreated dyslipidemia, untreated anxiety and depression, along with chronic pain, for which he is on a fentanyl patch and oral [place], who states that he developed pain to the right side of his throat about 4 weeks ago. The pain has gotten worse, specially over the last 3 to 4 days, and has extended to the right side of his jaw in the lower half of the right side of his face, including his right ear. The pain is made worse if he turns his head the right, if he looks up, or if he swallows. He denies dentalgia. No known trauma to the right side of his face. No recent fever, nausea, vomiting, or diarrhea. While the patient has seen his PCP, he states that he mentioned it to her, but that no medical evaluation was ordered. The patient has been taking his usual pain medications, but nothing else to treat his pain. Here in the ED, the patient is found to be hemodynamically stable, afebrile, and a normal oxygen saturation on room air. The patient's PCP is ADINA Kumar. His pain health safety and environment manager is Erin Fernandez NP. Right Throat Pain Score (Numeric/FACES): 9 - Related Data Allergies Allergy/AdvReac Type Severity Reaction Status Date / Time No Known Allergies Allergy Verified 05/27/19 00:05 Home Meds: Home Meds Hydrocodone/Acetaminophen [Hydrocodon-Acetaminophn 10-325] 10 - 325 mg PO ASDIRECTED PRN 10/10/18 [History] Cyclobenzaprine [Flexeril] 10 mg PO QPM 04/29/19 [History] fentaNYL [Fentanyl] 1 each TD ASDIRECTED 05/02/19 [History] Lisinopril [Zestril] 5 mg PO BID 05/27/19 [History] Omeprazole 20 mg PO BIDAC 05/27/19 [History] Past Medical History Cardiovascular History: Reports: Bacterial Endocarditis (when 21 yrs old), High Cholesterol (untreated), Hypertension, Other (See Below) (Pericarditis) Gastrointestinal History: Reports: GERD Psychiatric History: Reports: Anxiety (untreated), Depression (untreated) - Infectious Disease History Infectious Disease History: Reports: Chicken Pox - Past Surgical History HEENT Surgical History: Reports: Oral Surgery (wisdom teeth extraction) Cardiovascular Surgical History: Reports: Other (See Below) (Coronary angiogram at 21 yrs old -> normal) Social & Family History - Family History Family Medical History: Noncontributory - Tobacco Use Smoking Status *Q: Current Every Day Smoker Years of Tobacco use: 25 Packs/Tins Daily: 1 Packs/Tins Daily Comment: Down from 1.5 ppd - Caffeine Use Caffeine Use: Reports: Coffee - Alcohol Use Alcohol Use History: Yes Alcohol Use Frequency: Rarely - Recreational Drug Use Recreational Drug Use: Yes Drug Use in Last 12 Months: Yes Recreational Drug Type: Reports: LSD (Acid) (last took 2017), Marijuana/Hashish (last smoked Oct 2018), Methamphetamine (smoked once when 24 yrs old), Psilocybin (Mushrooms) (last took 2017), Other (see below) (Takes opioids daily) - Living Situation & Occupation Living situation: Reports: Single, with Significant Other (Girlfriend) Occupation: Employed ([employer]) ED ROS ENT - Review of Systems Review Of Systems: Comprehensive ROS is negative, except as noted in HPI. Musculoskeletal: Reports: Back Pain (chronic) ED EXAM, ENT - Physical Exam Exam: See Below Exam Limited By: No Limitations General Appearance: Alert, WD/WN, Mild Distress (appears uncomfortable) Eye Exam: Bilateral Eye: EOMI, Normal Inspection Ears: Normal Canal, Hearing Grossly Normal, Normal TMs, Auricular Tenderness ( when tugged), Other (No visible abnormality to the right ear, such as swelling, erythema, ecchymosis, or abrasion) Nose: Normal Inspection, Normal Mucousa, No Blood Mouth/Throat: Normal Inspection, Normal Gums, Normal Lips, Normal Oropharynx, Normal Teeth, Other (The patient reported pain when his right tonsil was swabbed ) Head: Atraumatic, Facial Tenderness (lower right), Other (Visible abnormality to the lower right face, such as swelling, erythema, ecchymosis, or abrasion) Neck: Full Range of Motion, Other (No visible abnormality to the right anterior neck, such as swelling, erythema, ecchymosis, or abrasion, however, the patient reports significant tenderness to palpation of the anterior right neck). No: Lymphadenopathy (L), Lymphadenopathy (R) Course - Vital Signs Last Recorded V/S: Last Vital Signs Temp 36.3 C 05/26/19 23:58 Pulse 83 05/26/19 23:58 Resp 16 05/26/19 23:58 BP 145/86 H 05/26/19 23:58 Pulse Ox 97 05/26/19 23:58 - Orders/Labs/Meds Labs: Laboratory Tests 05/27/19 05/27/19 Range/Units 02:35 02:35 WBC 7.73 (4.23-9.07) K/mm3 RBC 4.50 L (4.63-6.08) M/mm3 Hgb 13.3 L D (13.7-17.5) gm/dl Hct 41.6 (40.1-51.0) % MCV 92.4 H D (79.0-92.2) fl MCH 29.6 (25.7-32.2) pg MCHC 32.0 L (32.2-35.5) g/dl RDW Std Deviation 42.5 (35.1-43.9) fL Plt Count 265 (163-337) K/mm3 MPV 9.7 (9.4-12.3) fl Neutrophils % (Manual) 40 (40-60) % Band Neutrophils % 1 (0-10) % Lymphocytes % (Manual) 36 (20-40) % Atypical Lymphs % 0 % Monocytes % (Manual) 11 H (2-10) % Eosinophils % (Manual) 10 H (0.8-7.0) % Basophils % (Manual) 2 H (0.2-1.2) Platelet Estimate Adequate Plt Morphology Comment Normal RBC Morph Comment Normal Sodium 141 (136-145) mEq/L Potassium 3.8 (3.5-5.1) mEq/L Chloride 105 (98-107) mEq/L Carbon Dioxide 27 (21-32) mEq/L Anion Gap 12.8 (5-15) BUN 20 H (7-18) mg/dL Creatinine 1.0 (0.7-1.3) mg/dL Est Cr Clr Drug Dosing 124.17 mL/min Estimated GFR (MDRD) > 60 (>60) mL/min BUN/Creatinine Ratio 20.0 H (14-18) Glucose 99 (74-106) mg/dL Calcium 8.9 (8.5-10.1) mg/dL Total Bilirubin 0.2 (0.2-1.0) mg/dL AST 19 (15-37) U/L ALT 43 (16-63) U/L Alkaline Phosphatase 43 L (46-116) U/L C-Reactive Protein 2.3 H* (<1.0) mg/dL Total Protein 7.1 (6.4-8.2) g/dl Albumin 3.5 (3.4-5.0) g/dl Globulin 3.6 gm/dL Albumin/Globulin Ratio 1.0 (1-2) Meds: Medications Discontinued Medications Generic Name Dose Route Start Last Admin Trade Name Freq PRN Reason Stop Dose Admin Sodium Chloride 1,000 mls @ 150 mls/hr 05/27/19 02:30 05/27/19 02:57 Normal Saline IV 150 mls/hr ASDIRECTED IVÁN Administration Iopamidol 80 ml 05/27/19 02:32 05/27/19 02:46 Isovue-300 (61%) IVPUSH 05/27/19 02:33 80 ml ONETIME ONE Administration Sodium Chloride 10 ml 05/27/19 02:32 05/27/19 02:46 Saline Flush FLUSH 10 ml ONETIME PRN Administration KEEP VEIN OPEN - Re-Assessments/Exams Free Text/Narrative Re-Assessment/Exam: 05/27/19 02:26 The etiology of the patient's right neck and lower right facial pain is not immediately clear. I am not finding any visible abnormalities on physical exam , although he is tender to tugging on his right external auditory canal, to palpation of the right lower side of his face, and to the right side of his anterior neck. I swabbed his throat for a rapid strep test, and he commented that the swab on the right side was painful, as well. I don't have a strong suspicion that this is infectious. Because I am not finding an abnormality on physical exam, I am concerned about the possibility of an underlying malignancy pressing on some local nerves, particularly because the patient is a smoker. I have therefore ordered a CT of the soft tissue of his neck with IV contrast to evaluate for central process, along with some blood work and IV fluid. 05/27/19 03:24 The patient's CBC is remarkable for a Hgb slightly low at 13.3 with a Hct normal at 41.6, and the remainder of his CBC being unremarkable. His CMP is remarkable for a BUN slightly elevated at 20, with a Cr normal at 1.0 , and the remainder of his CMP being unremarkable. His CRP is mildly elevated at 2.3. His rapid strep test returned negative. CT of the soft tissue of the neck with IV contrast as read by Gurpreet as "Mild thickening of the adenoids and bilateral palatine tonsils suggesting mild adenoiditis and tonsillitis. No peritonsillar abscess. Mild thickening of the uvula." 05/27/19 03:29 Test results discussed with the patient and his girlfriend. The mildly elevated CRP indicates that the patient is suffering from a viral infection as the source of his adenoiditis and tonsillitis. His rapid strep returned negative, he does not have an elevated WBC count, and no suggestion of a bacterial infection was found on his CT scan. I am recommending that the patient take over the counter ibuprofen as an anti-inflammatory. I explained that, unfortunately, there are no antiviral medications that we can give him. It will have to run its course. The patient expressed understanding. Departure - Departure Time of Disposition: 03:30 Disposition: Home, Self-Care 01 Condition: Good Clinical Impression: Acute viral tonsillitis, Acute adenoiditis - Discharge Information *PRESCRIPTION DRUG MONITORING PROGRAM REVIEWED*: Not Applicable *COPY OF PRESCRIPTION DRUG MONITORING REPORT IN PATIENT KHOI: Not Applicable Instructions: Tonsillitis, [id number] Referrals: Erin Fernandez NP [Primary Care Provider] - Rowena Neely PA-C [Physician [employer]] - Forms: ED Department Discharge Additional Instructions: You were seen in the emergency room for 4 weeks of pain to the right side of your neck and face. Work-up in the ER included blood work, a rapid strep test, and a CT scan of the soft tissue of your neck with IV contrast. The CT scan found that you have tonsillitis and adenoiditis, and your blood work indicates that you have a viral illness. The remainder of your work-up was unremarkable. As discussed, unfortunately, there are no anti-viral medicines that can be given to treat this illness - it will have to run its course. We recommend that you take [id number] ibuprofen, 3 tablets (600 mg) every 8 hours, with food, as needed for discomfort. If any other problems, please do not hesitate to return to the ER. Sepsis Event Note - Evaluation Sepsis Screening Result: No Definite Risk - Focused Exam Date Exam was Performed: 05/28/19 Time Exam was Performed: 05:38
[2019-05-27] MEDS ORDERED: Sodium Chloride 0.9% 10 ML Syringe FLUSH PRN (02:32)
[2019-05-27] MEDS ORDERED: Iopamidol 612 MG/ML 100 ML Bottle IVPUSH ONE (02:32)
--- NOTE | 2019-05-27 07:03 | CT ---
CT neck Technique: Multiple axial sections through the neck were obtained. Reconstructed coronal and sagittal images were obtained. Intravenous contrast was utilized. Comparison: No prior neck imaging is available. Findings: Parotid salivary glands and submandibular salivary glands appear within normal limits. Small scattered lymph nodes are seen within the neck. Largest lymph node measures approximate 1.0 cm and most likely reactive. Visualized lung bases show nothing acute. Thyroid gland appears within normal limits. No peritonsillar abscess is seen. Parapharyngeal soft tissues appear symmetric. Tonsils are slightly enlarged raising the possibility of tonsillitis. Bone window settings were reviewed. No acute osseous finding is appreciated. Prevertebral soft tissues are normal. Epiglottis is normal. Impression: 1. Possible tonsillitis. No peritonsillar abscess. 2. Other normal findings as noted above. Diagnostic code #3 This report was dictated in [place] Standard Time I agree with preliminary report from [facility], finalized on 05/27/19, 4:21 AM Central Time
== END 2019-05-27 03:44 | disposition home or self-care (01) ==
LOC: JD.ED 23:46
DX: J03.80 Acute tonsillitis due to other specified organisms (principal); B97.89 Other viral agents as the cause of diseases classified elsewhere; K21.9 Gastro-esophageal reflux disease without esophagitis; F17.210 Nicotine dependence, cigarettes, uncomplicated; Z79.899 Other long term (current) drug therapy
CPT/HCPCS: 36415; 70491; 80053; 85007; 85027; 86140; 87081; 87430; 96360; 99283; J7030; Q9967

== ENCOUNTER 2019-10-06 23:42 | Emergency (ER) | payer BC ==
[2019-10-07] MEDS ORDERED: Alum Hydrox/Mag Hydrox/Simeth 30 ML, Lidocaine 2% 15 ML PO STA ×2 (01:16)
--- NOTE | 2019-10-07 01:22 | EDM.PDOC ---
ED HPI GENERAL MEDICAL PROBLEM - General Chief Complaint: Chest Pain Stated Complaint: SOB AND CHEST PAINS Time Seen by Provider: 10/07/19 00:46 Source of Information: Reports: Patient, Significant Other (Girlfriend) History Limitations: Reports: No Limitations - History of Present Illness INITIAL COMMENTS - FREE TEXT/NARRATIVE: Mr. Casanova is a very pleasant 39-year-old gentleman with a past medical history significant for bacterial endocarditis when he was 21 years old, and a history of pericarditis, and GERD, who now presents the ED stating that he has been experiencing lower midline chest/epigastric pain, along with dyspnea, on and off since 10/02/2019. He describes the pain as burning in character, and he states that it radiates to his left shoulder, but not down his left arm. The pain is not worse with position, however, he notices that it is made worse with exertion. He states that, despite taking omeprazole once a day, he continues to taste acid in his mouth, therefore he has been taking tasp-vab-wzafbem TUMS and Rolaids "like crazy", which relieves his symptoms for about an hour, only to recur. The patient states that his current symptoms are similar to when he had pericarditis previously. The patient has not previously undergone an EGD. Here in the ED, the patient's initial BP is found to be elevated at 157/96, otherwise, he is hemodynamically stable, afebrile, saturating 97% on room air. Other than the chest discomfort and acid taste issue, the patient denies recent fever, chills, sore throat, ear pain, nasal or sinus congestion, cough, dyspnea, palpitations, nausea, vomiting, constipation, diarrhea, abdominal pain, urinary symptoms, recent weight gain or weight loss, recent bloody bowel movements or black bowel movements, recent joint aches, headaches, or rashes. The patient's PCP is ADINA Kumar. His pain manager business development hospice is Erin Fernandez NP. Middle Chest Pain Score (Numeric/FACES): 3 - Related Data Allergies Allergy/AdvReac Type Severity Reaction Status Date / Time No Known Allergies Allergy Verified 10/06/19 23:53 Home Meds: Home Meds Hydrocodone/Acetaminophen [Hydrocodon-Acetaminophn 10-325] 10 - 325 mg PO ASDIRECTED PRN 10/10/18 [History] Cyclobenzaprine [Flexeril] 10 mg PO QPM 04/29/19 [History] fentaNYL [Fentanyl] 1 each TD ASDIRECTED 05/02/19 [History] Omeprazole 20 mg PO BIDAC 05/27/19 [History] lisinopriL [Zestril] 5 mg PO DAILY 05/27/19 [History] Past Medical History Cardiovascular History: Reports: Bacterial Endocarditis (when 21 yrs old), High Cholesterol (untreated), Hypertension, Other (See Below) (Pericarditis) Gastrointestinal History: Reports: GERD Psychiatric History: Reports: Anxiety (untreated), Depression (untreated) Endocrine/Metabolic History: Reports: Obesity/BMI 30+ - Past Surgical History HEENT Surgical History: Reports: Oral Surgery (wisdom teeth extraction) Cardiovascular Surgical History: Reports: Other (See Below) (Coronary angiogram at 21 yrs old -> negative) Social & Family History - Family History Family Medical History: Noncontributory - Tobacco Use Smoking Status *Q: Current Every Day Smoker Years of Tobacco use: 25 Packs/Tins Daily: 1 Packs/Tins Daily Comment: Down from 1.5 ppd - Caffeine Use Caffeine Use: Reports: Coffee - Alcohol Use Alcohol Use History: Yes Alcohol Use Frequency: Rarely - Recreational Drug Use Recreational Drug Use: Yes Drug Use in Last 12 Months: Yes Recreational Drug Type: Reports: LSD (Acid) (last took 2017), Marijuana/Hashish (last smoked Oct 2018), Methamphetamine (smoked once when 24 yrs old), Psilocybin (Mushrooms) (last took 2017), Other (see below) (Takes opioids daily) - Living Situation & Occupation Living situation: Reports: Single, with Significant Other (Girlfriend) Occupation: Unemployed (Laid off) ED ROS GENERAL - Review of Systems Review Of Systems: Comprehensive ROS is negative, except as noted in HPI. ED EXAM, GENERAL - Physical Exam Exam: See Below Exam Limited By: No Limitations General Appearance: Alert, WD/WN, No Apparent Distress Eye Exam: Bilateral Eye: EOMI, Normal Inspection Ears: Normal External Exam, Hearing Grossly Normal Nose: Normal Inspection Throat/Mouth: Normal Inspection, Normal Lips, Normal Voice, No Airway Compromise Head: Atraumatic, Normocephalic Neck: Normal Inspection, Full Range of Motion Respiratory/Chest: No Respiratory Distress, Lungs Clear, Normal Breath Sounds, No Accessory Muscle Use, Chest Non-Tender Cardiovascular: Normal Peripheral Pulses, Regular Rate, Rhythm, No Edema, No Gallop, No JVD, No Murmur, No Rub Peripheral Pulses: 3+: Radial (L), Radial (R) GI/Abdominal: Normal Bowel Sounds, Soft, No Organomegaly, No Distention, No Abnormal Bruit, No Mass, Tender (Very mild, to the epigastrium only. Nontender elsewhere.) (Male) Exam: Deferred Rectal (Males) Exam: Deferred Back Exam: Normal Inspection, Full Range of Motion, NT Extremities: Normal Inspection, Normal Range of Motion, No Pedal Edema, Normal Capillary Refill Neurological: Alert, Oriented, Normal Cognition, No Motor/Sensory Deficits Psychiatric: Normal Affect Skin Exam: Warm, Dry, Intact, Normal Color, No Rash EKG INTERPRETATION EKG Date: 10/06/19 Time: 23:58 Rhythm: NSR Rate (Beats/Min): 74 Horton: RAD-Right Horton Deviation (likely due to LPFB) P-Wave: Present (1st degree AVB) QRS: Normal (? late transition) ST-T: Elevated (J-point elevation V2-V6 + slighly in II) QT: Normal Comparison: No Change (05/02/2019) Course - Vital Signs Last Recorded V/S: Last Vital Signs Temp 36.1 C 10/06/19 23:50 Pulse 83 10/06/19 23:50 Resp 18 10/06/19 23:50 BP 157/96 H 10/06/19 23:50 Pulse Ox 97 10/06/19 23:50 - Orders/Labs/Meds Orders: Active Orders 24 hr Category Date Time Status EKG 12 Lead [EKG Documentation Completion] [RC] ROUTINE Care 10/06/19 23:58 Active Chest 2V [CR] Stat Exams 10/07/19 01:15 Taken Labs: Laboratory Tests 10/07/19 10/07/19 10/07/19 Range/Units 01:34 01:34 01:34 WBC 11.75 H (4.23-9.07) K/mm3 RBC 4.75 (4.63-6.08) M/mm3 Hgb 14.2 (13.7-17.5) gm/dl Hct 41.6 (40.1-51.0) % MCV 87.6 D (79.0-92.2) fl MCH 29.9 (25.7-32.2) pg MCHC 34.1 (32.2-35.5) g/dl RDW Std Deviation 44.0 H (35.1-43.9) fL Plt Count 244 (163-337) K/mm3 MPV 10.1 (9.4-12.3) fl Neutrophils % (Manual) 56 (40-60) % Band Neutrophils % 0 (0-10) % Lymphocytes % (Manual) 33 (20-40) % Atypical Lymphs % 0 % Monocytes % (Manual) 6 (2-10) % Eosinophils % (Manual) 5 (0.8-7.0) % Basophils % (Manual) 0 L (0.2-1.2) Platelet Estimate Adequate RBC Morph Comment Normal D-Dimer, Quantitative < 0.19 L (0.19-0.50) mg/L Sodium 137 (136-145) mEq/L Potassium 3.8 (3.5-5.1) mEq/L Chloride 100 (98-107) mEq/L Carbon Dioxide 26 (21-32) mEq/L Anion Gap 14.8 (5-15) BUN 25 H (7-18) mg/dL Creatinine 1.3 (0.7-1.3) mg/dL Est Cr Clr Drug Dosing 95.52 mL/min Estimated GFR (MDRD) > 60 (>60) mL/min BUN/Creatinine Ratio 19.2 H (14-18) Glucose 105 (74-106) mg/dL Calcium 9.1 (8.5-10.1) mg/dL Total Bilirubin 0.4 (0.2-1.0) mg/dL AST 30 (15-37) U/L ALT 52 (16-63) U/L Alkaline Phosphatase 58 (46-116) U/L Troponin I < 0.017 (0.00-0.056) ng/mL NT-Pro-B Natriuret Pep (0-125) pg/mL Total Protein 7.4 (6.4-8.2) g/dl Albumin 4.0 (3.4-5.0) g/dl Globulin 3.4 gm/dL Albumin/Globulin Ratio 1.2 (1-2) Lipase 99 (73-393) U/L 10/07/19 Range/Units 01:34 WBC (4.23-9.07) K/mm3 RBC (4.63-6.08) M/mm3 Hgb (13.7-17.5) gm/dl Hct (40.1-51.0) % MCV (79.0-92.2) fl MCH (25.7-32.2) pg MCHC (32.2-35.5) g/dl RDW Std Deviation (35.1-43.9) fL Plt Count (163-337) K/mm3 MPV (9.4-12.3) fl Neutrophils % (Manual) (40-60) % Band Neutrophils % (0-10) % Lymphocytes % (Manual) (20-40) % Atypical Lymphs % % Monocytes % (Manual) (2-10) % Eosinophils % (Manual) (0.8-7.0) % Basophils % (Manual) (0.2-1.2) Platelet Estimate RBC Morph Comment D-Dimer, Quantitative (0.19-0.50) mg/L Sodium (136-145) mEq/L Potassium (3.5-5.1) mEq/L Chloride (98-107) mEq/L Carbon Dioxide (21-32) mEq/L Anion Gap (5-15) BUN (7-18) mg/dL Creatinine (0.7-1.3) mg/dL Est Cr Clr Drug Dosing mL/min Estimated GFR (MDRD) (>60) mL/min BUN/Creatinine Ratio (14-18) Glucose (74-106) mg/dL Calcium (8.5-10.1) mg/dL Total Bilirubin (0.2-1.0) mg/dL AST (15-37) U/L ALT (16-63) U/L Alkaline Phosphatase (46-116) U/L Troponin I (0.00-0.056) ng/mL NT-Pro-B Natriuret Pep 39 (0-125) pg/mL Total Protein (6.4-8.2) g/dl Albumin (3.4-5.0) g/dl Globulin gm/dL Albumin/Globulin Ratio (1-2) Lipase (73-393) U/L Meds: Medications Discontinued Medications Generic Name Dose Route Start Last Admin Trade Name Freq PRN Reason Stop Dose Admin Al Hydroxide/Mg Hydroxide 30 0 ml 10/07/19 01:16 10/07/19 01:25 ml/ Lidocaine HCl 15 ml PO 10/07/19 01:17 45 ml ONETIME STA Administration Famotidine 40 mg 10/07/19 02:49 10/07/19 02:59 Pepcid PO 10/07/19 02:50 40 mg ONETIME STA Administration - Re-Assessments/Exams Free Text/Narrative Re-Assessment/Exam: 10/07/19 01:17 As above, the patient has been experiencing recurrent symptoms of chest pain most likely due to acid reflux since 10/02/2019. He tastes acid in his mouth if he takes his omeprazole alone, without Tums or Rolaids, and then has about 1 hour of relief after taking Tums or Rolaids. He is also complaining of considerable associated shortness of breath. The ECG obtained at triage demonstrates some concave ST elevations from V2 to V6, as well as possibly in lead II, and while the patient states that his current symptoms are similar to when he previously had pericarditis, his current symptoms are not modifiable with position. On physical exam, he has mild epigastric tenderness, but no other physical findings. I have ordered a GI cocktail, to confirm that he gets some relief with a direct antacid, and in the meantime, I have ordered a work-up that includes blood work and a chest x-ray. 10/07/19 01:57 Two-view chest radiograph appears to be grossly normal. The cardiac silhouette is within normal limits. No pulmonary vascular congestion. No pleural effusions. No focal infiltrate. No pneumothorax. Formal read per the Radiologist pending. 10/07/19 02:47 The patient's CBC is remarkable for a WBC count mildly elevated at 11.75, but with 0% bandemia. The remainder of his CBC is unremarkable. His CMP is remarkable for a BUN slightly elevated at 25, but with a Cr normal at 123, and the remainder of his CMP being unremarkable. His troponin is undetectably low. His D-dimer is undetectably low. His BNP is within normal limits at 39. His lipase is within normal limits at 99. 10/07/19 02:53 Test results discussed with the patient and his girlfriend. He states that following the GI cocktail, his heartburn has completely resolved, however, he continues to have a low-level chest discomfort, which he cannot account for. I explained that his symptoms appear to all be due to GERD. I explained that we will start him on oral famotidine here in the ED, and I am recommending that he take 1 tablet twice a day, for at least 3 days. I am also recommending that he switch his current omeprazole to any other PPI, such as Nexium. Lastly, I am strongly recommending that he follow-up with his PCP to arrange for an EGD. Departure - Departure Time of Disposition: 02:57 Disposition: Home, Self-Care 01 Condition: Good Clinical Impression: GERD (gastroesophageal reflux disease) - Discharge Information *PRESCRIPTION DRUG MONITORING PROGRAM REVIEWED*: Not Applicable *COPY OF PRESCRIPTION DRUG MONITORING REPORT IN PATIENT KHOI: Not Applicable Instructions: Gastroesophageal Reflux Disease, Adult, Woro-rk-Qnth Referrals: Erin Fernandez NP [Primary Care Provider] - Rowena Neely PA-C [Physician Media Services Specialist] - Forms: ED Department Discharge Additional Instructions: You were seen in the emergency room for recurrent burning lower chest/upper abdominal pain since 10/02/2019. Work-up in the ER included blood work, a chest x-ray, and an ECG. Your entire work-up was unremarkable. You have not suffered a heart attack. You do not have a blood clot in your lungs. You do not have pancreatitis. Based on your history, physical exam, and ER tests, your symptoms are most likely due to GERD. You have been started on the antacid famotidine (Pepcid). Famotidine is available over the counter, and generic is just as good as the brand name. We recommend that you take one tablet of famotidine twice a day for at least 3 days. We recommend that you switch your omeprazole to a different PPI, such as Nexium. We strongly recommend that you follow up with your PCP, ADINA Kumar, to arrange for an EGD (scope of your stomach). We also recommend that you strongly consider quitting smoking. If any other problems, please do not hesitate to return to the ER. Sepsis Event Note (ED) - Evaluation Sepsis Screening Result: No Definite Risk - Focused Exam Vital Signs: Vital Signs Temp Pulse Resp BP Pulse Ox 10/06/19 23:50 36.1 C 83 18 157/96 H 97 - My Orders Last 24 Hours: My Active Orders 10/06/19 23:58 EKG 12 Lead [EKG Documentation Completion] [RC] ROUTINE 10/07/19 01:15 Chest 2V [CR] Stat - Assessment/Plan Last 24 Hours: My Active Orders 10/06/19 23:58 EKG 12 Lead [EKG Documentation Completion] [RC] ROUTINE 10/07/19 01:15 Chest 2V [CR] Stat
[2019-10-07] MEDS ORDERED: Famotidine 20 MG Tab PO STA (02:49)
--- NOTE | 2019-10-07 06:34 | CR ---
Chest: 2 views of the chest were obtained. Comparison: Prior chest x-ray of 06/20/19. Heart size and mediastinum are normal. Lungs are clear with no acute parenchymal change. Bony structures are unremarkable. Impression: 1. Nothing acute is seen on 2 view chest x-ray. Diagnostic code #1 This report was dictated in MDT
== END 2019-10-07 03:15 | disposition home or self-care (01) ==
LOC: JD.ED 23:42
DX: K21.9 Gastro-esophageal reflux disease without esophagitis (principal); F17.210 Nicotine dependence, cigarettes, uncomplicated; Z79.899 Other long term (current) drug therapy
CPT/HCPCS: 36415; 71046; 80053; 83690; 83880; 84484; 85007; 85027; 85379; 93005; 99285; A9270; 93010; 99283

== ENCOUNTER 2020-01-10 11:55 | Emergency (ER) | payer SELFPAY ==
--- NOTE | 2020-01-10 15:03 | EDM.PDOC ---
ED HPI GENERAL MEDICAL PROBLEM - General Chief Complaint: Skin Complaint Stated Complaint: LUMPS ON CHEST Time Seen by Provider: 01/10/20 13:00 Source of Information: Reports: Patient History Limitations: Reports: No Limitations - History of Present Illness INITIAL COMMENTS - FREE TEXT/NARRATIVE: The patient presents with left chest tenderness. This has been going on for over 3 months. He has no trauma to that area. His nipple on that side is tender. He has no fever, chills, cough, congestion, runny nose, abdominal pain, nausea or vomiting. He says he has lost about 30 pounds over the past 4 months. This was not intentional. He has some chronic pain issues. Onset: Gradual Duration: Week(s): Location: Reports: Chest Quality: Reports: Sharp Severity: Moderate Improves with: Reports: None Worsens with: Reports: None Associated Symptoms: Reports: No Other Symptoms Treatments HUMAN RESOURCE ASSISTANT: Reports: Other (see below) Other Treatments HUMAN RESOURCE ASSISTANT: hydrocodone Left Breast Pain Score (Numeric/FACES): 10 Left Axillary Pain Score (Numeric/FACES): 10 - Related Data Allergies Allergy/AdvReac Type Severity Reaction Status Date / Time No Known Allergies Allergy Verified 10/06/19 23:53 Home Meds: Home Meds Hydrocodone/Acetaminophen [Hydrocodon-Acetaminophn 10-325] 10 - 325 mg PO ASDIRECTED PRN 10/10/18 [History] Cyclobenzaprine [Flexeril] 10 mg PO QPM 04/29/19 [History] fentaNYL [Fentanyl] 1 each TD ASDIRECTED 05/02/19 [History] lisinopriL [Zestril] 5 mg PO DAILY 05/27/19 [History] Amoxicillin 875 mg PO BID #20 tab 01/10/20 [Rx] Past Medical History Cardiovascular History: Reports: Bacterial Endocarditis, High Cholesterol, Hypertension Other Cardiovascular History: 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 Pt diagnosed with pericarditis on 12/05/18. Pt states he had a CT when he was 21. Respiratory History: Reports: SOB Gastrointestinal History: Reports: GERD Genitourinary History: Reports: None Musculoskeletal History: Reports: Back Pain, Chronic, Fracture Neurological History: Reports: Concussion Psychiatric History: Reports: Anxiety, Depression Endocrine/Metabolic History: Reports: Obesity/BMI 30+ Hematologic History: Reports: None Immunologic History: Reports: None Oncologic (Cancer) History: Reports: None Dermatologic History: Reports: Other (See Below) Other Dermatologic History: lumps on forearms, spreading to face - Infectious Disease History Infectious Disease History: Reports: None - Past Surgical History Head Surgeries/Procedures: Reports: None HEENT Surgical History: Reports: Oral Surgery Cardiovascular Surgical History: Reports: Other (See Below) Social & Family History - Family History Family Medical History: Noncontributory - Tobacco Use Tobacco Use Status *Q: Current Every Day Tobacco User Years of Tobacco use: 10 Packs/Tins Daily: 1 - Caffeine Use Caffeine Use: Reports: Coffee - Recreational Drug Use Recreational Drug Use: Yes Recreational Drug Type: Reports: Marijuana/Hashish Recreational Drug Use Frequency: Monthly - Living Situation & Occupation Living situation: Reports: Single, with Significant Other (Girlfriend) Occupation: Unemployed (Laid off) ED ROS GENERAL - Review of Systems Review Of Systems: See Below Constitutional: Reports: No Symptoms HEENT: Reports: No Symptoms Respiratory: Reports: No Symptoms Cardiovascular: Reports: No Symptoms Endocrine: Reports: No Symptoms GI/Abdominal: Reports: No Symptoms : Reports: No Symptoms Musculoskeletal: Reports: No Symptoms Skin: Reports: No Symptoms ED EXAM, SKIN/RASH Exam: See Below Exam Limited By: No Limitations General Appearance: Alert, No Apparent Distress Ears: Normal External Exam Nose: Normal Inspection Head: Atraumatic, Normocephalic Neck: Normal Inspection Respiratory/Chest: No Respiratory Distress, Lungs Clear, Normal Breath Sounds Cardiovascular: Regular Rate, Rhythm, No Edema, No Murmur, Other (Pain upon palpation to the left nipple and areolar area with a mass felt to the left lateral position. No nipple discharge noted.) GI/Abdominal: Soft, Non-Tender, No Organomegaly, No Mass Back Exam: Normal Inspection Extremities: Other (Mild lymphadenopathy to the left axilla) Neurological: Alert, Oriented Course - Vital Signs Last Recorded V/S: Last Vital Signs Temp 98.7 F 01/10/20 12:54 Pulse 76 01/10/20 12:54 Resp 20 01/10/20 12:54 BP 143/89 H 01/10/20 12:54 Pulse Ox 99 01/10/20 12:54 - Orders/Labs/Meds Orders: Active Orders 24 hr Category Date Time Status Cardiac Monitoring [RC] . DIRECTED Care 01/10/20 13:06 Active Breast Limited Lt [US] Stat Exams 01/10/20 13:07 Taken Labs: Laboratory Tests 01/10/20 01/10/20 Range/Units 13:50 13:50 WBC 7.51 (4.23-9.07) K/mm3 RBC 4.62 L (4.63-6.08) M/mm3 Hgb 13.6 L (13.7-17.5) gm/dl Hct 40.9 (40.1-51.0) % MCV 88.5 (79.0-92.2) fl MCH 29.4 (25.7-32.2) pg MCHC 33.3 (32.2-35.5) g/dl RDW Std Deviation 41.6 (35.1-43.9) fL Plt Count 224 (163-337) K/mm3 MPV 10.1 (9.4-12.3) fl Neut % (Auto) 50.7 (34.0-67.9) % Lymph % (Auto) 36.5 (21.8-53.1) % [place] % (Auto) 7.2 (5.3-12.2) % Eos % (Auto) 5.2 (0.8-7.0) Baso % (Auto) 0.3 (0.1-1.2) % Neut # (Auto) 3.81 (1.78-5.38) K/mm3 Lymph # (Auto) 2.74 (1.32-3.57) K/mm3 [place] # (Auto) 0.54 (0.30-0.82) K/mm3 Eos # (Auto) 0.39 (0.04-0.54) K/mm3 Baso # (Auto) 0.02 (0.01-0.08) K/mm3 Sodium 139 (136-145) mEq/L Potassium 4.2 (3.5-5.1) mEq/L Chloride 104 (98-107) mEq/L Carbon Dioxide 26 (21-32) mEq/L Anion Gap 13.2 (5-15) BUN 21 H (7-18) mg/dL Creatinine 1.0 (0.7-1.3) mg/dL Est Cr Clr Drug Dosing 124.17 mL/min Estimated GFR (MDRD) > 60 (>60) mL/min BUN/Creatinine Ratio 21.0 H (14-18) Glucose 95 (74-106) mg/dL Calcium 8.9 (8.5-10.1) mg/dL Total Bilirubin 0.3 (0.2-1.0) mg/dL AST 23 (15-37) U/L ALT 55 (16-63) U/L Alkaline Phosphatase 50 (46-116) U/L C-Reactive Protein <0.2 (<1.0) mg/dL Total Protein 7.2 (6.4-8.2) g/dl Albumin 3.8 (3.4-5.0) g/dl Globulin 3.4 gm/dL Albumin/Globulin Ratio 1.1 (1-2) - Re-Assessments/Exams Free Text/Narrative Re-Assessment/Exam: 01/10/20 15:00 I ordered labs and an US of his left pectoral. His US shows possible tiny subareolar abscess. Consider aspiration or antibiotics. Vague hyperechoic area in the upper subareolar left breast. Recommend evaluation with bilateral mammography. Vague mass like area should be correlated with bilateral mammography. I will get him on antibiotics for the abscess area and I will have him follow up with Chester Mojica and have an MRI ordered. Departure - Departure Time of Disposition: 15:05 Disposition: Home, Self-Care 01 Condition: Good Clinical Impression: Abscess, Chest wall mass - Discharge Information *PRESCRIPTION DRUG MONITORING PROGRAM REVIEWED*: Not Applicable *COPY OF PRESCRIPTION DRUG MONITORING REPORT IN PATIENT KHOI: Not Applicable Prescriptions: Amoxicillin 875 mg PO BID #20 tab Referrals: Erin Fernandez NP [Primary Care Provider] - 1 Week Chester Mojica PA-C [Physician Endoscopy Rn] - Additional Instructions: Take the amoxicillin 2 times per day for 10 days. Follow up with Erin Fernandez or Chester Mojica to get a mammogram ordered. Please return if you are worse. Sepsis Event Note (ED) - Evaluation Sepsis Screening Result: No Definite Risk - Focused Exam Vital Signs: Vital Signs Temp Pulse Resp BP Pulse Ox 01/10/20 12:54 98.7 F 76 20 143/89 H 99 - My Orders Last 24 Hours: My Active Orders 01/10/20 13:06 Cardiac Monitoring [RC] . DIRECTED 01/10/20 13:07 Breast Limited Lt [US] Stat - Assessment/Plan Last 24 Hours: My Active Orders 01/10/20 13:06 Cardiac Monitoring [RC] . DIRECTED 01/10/20 13:07 Breast Limited Lt [US] Stat
== END 2020-01-10 15:25 | disposition home or self-care (01) ==
LOC: JD.ED 11:55
DX: L02.213 Cutaneous abscess of chest wall (principal); I10 Essential (primary) hypertension; E66.9 Obesity, unspecified; I25.2 Old myocardial infarction; F17.210 Nicotine dependence, cigarettes, uncomplicated; Z68.29 Body mass index [BMI] 29.0-29.9, adult
CPT/HCPCS: 36415; 76642-LT; 80053; 85025; 86140; 99283; 99284-25

== ENCOUNTER 2020-02-24 18:12 | Emergency (ER) | payer SELFPAY ==
[2020-02-24] MEDS ORDERED: Sodium Chloride 0.9% 10 ML Syringe FLUSH PRN (18:40)
--- NOTE | 2020-02-24 20:03 | EDM.PDOC ---
ED HPI GENERAL MEDICAL PROBLEM - General Chief Complaint: Cardiovascular Problem Stated Complaint: chest pain high blood pressure Time Seen by Provider: 02/24/20 19:03 Source of Information: Reports: Patient, RN Notes Reviewed History Limitations: Reports: No Limitations - History of Present Illness INITIAL COMMENTS - FREE TEXT/NARRATIVE: Patient is a 39-year-old male who presents to the ED for the evaluation of his chest pain. Patient notes he was at home, sitting on his bed, when he began to feel some left chest pressure, and a feeling of presyncope. He states that he had some visual disturbances, colors and spots in his vision, and almost passed out. He laid on the bed for quite some time, he also states that he took his blood pressure at that time and it was 170/112. His heart rate was 115 during this time. He has not felt this before ever. He does take 5 mg of lisinopril for blood pressure management. He notes that he got shortness of breath with the episode, but is not short of breath at this time he denies any fevers or chills, nausea vomiting or diarrhea. Patient states he did become diaphoretic with the episode. He notes that he was eating and drinking okay today, but he feels like his mouth is dry. He denies any sick contacts that he may have had. His primary care provider is Erin Fernandez at the [facility]. Treatments GLOBAL PROCESS OWNER: Reports: Other (see below) Other Treatments GLOBAL PROCESS OWNER: none Left Chest Pain Score (Numeric/FACES): 2 - Related Data Allergies Allergy/AdvReac Type Severity Reaction Status Date / Time No Known Allergies Allergy Verified 10/06/19 23:53 Home Meds: Home Meds Hydrocodone/Acetaminophen [Hydrocodon-Acetaminophn 10-325] 10 - 325 mg PO ASDIRECTED PRN 10/10/18 [History] Cyclobenzaprine [Flexeril] 10 mg PO QPM 04/29/19 [History] fentaNYL [Fentanyl] 25 mcg TOP Q3D 05/02/19 [History] lisinopriL [Zestril] 5 mg PO DAILY 05/27/19 [History] Past Medical History Cardiovascular History: Reports: Bacterial Endocarditis, High Cholesterol, Hypertension Other Cardiovascular History: 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 Pt diagnosed with pericarditis on 9/11/19. Pt states he had a ND when he was 21. Respiratory History: Reports: SOB Gastrointestinal History: Reports: GERD Genitourinary History: Reports: None Musculoskeletal History: Reports: Back Pain, Chronic, Fracture Neurological History: Reports: Concussion Psychiatric History: Reports: Anxiety, Depression Endocrine/Metabolic History: Reports: Obesity/BMI 30+ Hematologic History: Reports: None Immunologic History: Reports: None Oncologic (Cancer) History: Reports: None Dermatologic History: Reports: Other (See Below) Other Dermatologic History: lumps on forearms, spreading to face - Infectious Disease History Infectious Disease History: Reports: None - Past Surgical History Head Surgeries/Procedures: Reports: None HEENT Surgical History: Reports: Oral Surgery Other HEENT Surgeries/Procedures: wisdom teeth removed. Cardiovascular Surgical History: Reports: Other (See Below) Social & Family History - Family History Family Medical History: No Pertinent Family History - Tobacco Use Tobacco Use Status *Q: Current Every Day Tobacco User Years of Tobacco use: 18 Packs/Tins Daily: 0.5 - Caffeine Use Caffeine Use: Reports: Coffee - Recreational Drug Use Recreational Drug Type: Reports: Marijuana/Hashish Other Recreational Drug Type: few timems per week - Living Situation & Occupation Living situation: Reports: Single, with Significant Other (Girlfriend) Occupation: Unemployed (Laid off) ED ROS GENERAL - Review of Systems Review Of Systems: Comprehensive ROS is negative, except as noted in HPI. ED EXAM, GENERAL - Physical Exam Exam: See Below Exam Limited By: No Limitations General Appearance: Alert, WD/WN, No Apparent Distress Respiratory/Chest: No Respiratory Distress, Lungs Clear, Normal Breath Sounds, No Accessory Muscle Use, Chest Non-Tender Cardiovascular: Normal Peripheral Pulses, Regular Rate, Rhythm, No Edema, No Murmur Peripheral Pulses: 2+: Radial (L), Radial (R) GI/Abdominal: Normal Bowel Sounds, Soft, Non-Tender, No Distention, No Mass Extremities: Normal Inspection, Normal Capillary Refill Neurological: Alert, Oriented, Normal Cognition, No Motor/Sensory Deficits Psychiatric: Normal Affect, Normal Mood Skin Exam: Warm, Dry, Intact, Normal Color, No Rash #1 Interpretation EKG Date: 02/24/20 Time: 18:55 Rhythm: NSR Rate (Beats/Min): 77 [place]: RAD-Right [place] Deviation (121 ) P-Wave: Present QRS: Normal ST-T: Normal QT: Normal Comparison: No Change EKG Interpretation Comments: No obvious ischemia or acute ST changes noted, reviewed by myself and Dr. Davidson. I did review this EKG compared to his last EKG done here a few months ago. There are no major changes appreciated. Course - Vital Signs Last Recorded V/S: Last Vital Signs Temp 97.9 F 02/24/20 18:27 Pulse 96 02/24/20 18:27 Resp 15 02/24/20 18:27 BP 156/100 H 02/24/20 18:27 Pulse Ox 96 02/24/20 18:27 - Orders/Labs/Meds Orders: Active Orders 24 hr Category Date Time Status EKG Documentation Completion [RC] STAT Care 02/24/20 18:40 Active Holter Monitor 48 Hours [RC] .PRN Care 02/24/20 19:54 Active Peripheral IV Care [RC] . DIRECTED Care 02/24/20 18:40 Active Chest 1V Frontal [CR] Stat Exams 02/24/20 18:40 Taken PRO B-TYPE NATRIUR PEPT,BNPPRO [CHEM] Stat Lab 02/24/20 18:55 Received Sodium Chloride 0.9% [Saline Flush] Med 02/24/20 18:40 Active 10 ml FLUSH ASDIRECTED PRN Peripheral IV Insertion Adult [OM.PC] Stat Oth 02/24/20 18:40 Ordered Medication Orders Sodium Chloride (Saline Flush) 10 ml FLUSH ASDIRECTED PRN PRN Reason: Keep Vein Open Last Admin: 02/24/20 18:58 Dose: 10 ml Documented by: FABBY Labs: Laboratory Tests 02/24/20 02/24/20 02/24/20 Range/Units 18:55 18:55 18:55 WBC 10.46 H (4.23-9.07) K/mm3 RBC 4.57 L (4.63-6.08) M/mm3 Hgb 13.9 (13.7-17.5) gm/dl Hct 39.4 L (40.1-51.0) % MCV 86.2 (79.0-92.2) fl MCH 30.4 (25.7-32.2) pg MCHC 35.3 (32.2-35.5) g/dl RDW Std Deviation 40.2 (35.1-43.9) fL Plt Count 244 (163-337) K/mm3 MPV 10.0 (9.4-12.3) fl Neut % (Auto) 62.2 (34.0-67.9) % Lymph % (Auto) 27.4 (21.8-53.1) % [place] % (Auto) 6.6 (5.3-12.2) % Eos % (Auto) 3.6 (0.8-7.0) Baso % (Auto) 0.2 (0.1-1.2) % Neut # (Auto) 6.50 H (1.78-5.38) K/mm3 Lymph # (Auto) 2.87 (1.32-3.57) K/mm3 [place] # (Auto) 0.69 (0.30-0.82) K/mm3 Eos # (Auto) 0.38 (0.04-0.54) K/mm3 Baso # (Auto) 0.02 (0.01-0.08) K/mm3 PT 10.2 (9.7-12.0) SECONDS INR 0.95 APTT 26.3 (21.7-31.4) SECONDS Sodium 139 (136-145) mEq/L Potassium 3.7 (3.5-5.1) mEq/L Chloride 103 (98-107) mEq/L Carbon Dioxide 24 (21-32) mEq/L Anion Gap 15.7 H (5-15) BUN 18 (7-18) mg/dL Creatinine 1.1 (0.7-1.3) mg/dL Est Cr Clr Drug Dosing 112.88 mL/min Estimated GFR (MDRD) > 60 (>60) mL/min BUN/Creatinine Ratio 16.4 (14-18) Glucose 111 H (74-106) mg/dL Calcium 8.9 (8.5-10.1) mg/dL Magnesium 2.0 (1.8-2.4) mg/dl Total Bilirubin 0.3 (0.2-1.0) mg/dL AST 25 (15-37) U/L ALT 61 (16-63) U/L Alkaline Phosphatase 56 (46-116) U/L Troponin I < 0.017 (0.00-0.056) ng/mL Total Protein 7.5 (6.4-8.2) g/dl Albumin 3.9 (3.4-5.0) g/dl Globulin 3.6 gm/dL Albumin/Globulin Ratio 1.1 (1-2) Meds: Medications Generic Name Dose Route Start Last Admin Trade Name Catrachita PRN Reason Stop Dose Admin Sodium Chloride 10 ml 02/24/20 18:40 02/24/20 18:58 Saline Flush FLUSH 10 ml ASDIRECTED PRN Administration Keep Vein Open - Re-Assessments/Exams Free Text/Narrative Re-Assessment/Exam: 02/24/20 19:59 Patient presents to the ED for evaluation of his chest pressure, and elevated blood pressure readings at home. Due to his accompanying tachycardia. I will provide the patient with a 48-hour outpatient Holter monitor for evaluation. EKG was not concerning for acute myocardial injury. Chest x-ray also was without acute findings. Labs demonstrate no metabolic abnormalities, troponin is undetectably low. Departure - Departure Time of Disposition: 20:00 Disposition: Home, Self-Care 01 Condition: Good Clinical Impression: Left chest pressure, Elevated blood pressure reading in office with diagnosis of hypertension, Tachycardia Instructions: Nonspecific Chest Pain, Adult, [id number] Referrals: Erin Fernandez, [facility] [Primary Care Provider] - Additional Instructions: You were evaluated in the ER today for your left-sided chest pressure. Your EKG, chest x-ray, and laboratory findings were all within normal limits at today's visit. You are not suffering from a heart attack at today's visit. Due to your account of having some slight tachycardia at home. We will send you home with a Holter monitor, please keep this on your body as directed for the next 48 hours, and return to our ER, so we can get this back and reported out to your primary care provider, you will need to follow-up with your primary care provider for results of this, please allow roughly 1 week to make sure that we get the results reported to them in a timely fashion. I would recommend taking your blood pressure on a daily basis, in a calm, collected manner, after you have been sitting down and resting for at least 2 to 3 minutes. Record this blood pressure reading and discuss this with your primary care provider, so she may try to adjust your blood pressure medications as needed. Please return to the ER at any time if symptoms change or worsen. Sepsis Event Note (ED) - Evaluation Sepsis Screening Result: No Definite Risk - Focused Exam Vital Signs: Vital Signs Temp Pulse Resp BP Pulse Ox 02/24/20 18:27 97.9 F 96 15 156/100 H 96 - My Orders Last 24 Hours: My Active Orders 02/24/20 18:40 EKG Documentation Completion [RC] STAT Peripheral IV Care [RC] . DIRECTED Chest 1V Frontal [CR] Stat Sodium Chloride 0.9% [Saline Flush] 10 ml FLUSH ASDIRECTED PRN Peripheral IV Insertion Adult [OM.PC] Stat 02/24/20 18:55 PRO B-TYPE NATRIUR PEPT,BNPPRO [CHEM] Stat 02/24/20 19:54 Holter Monitor 48 Hours [RC] .PRN - Assessment/Plan Last 24 Hours: My Active Orders 02/24/20 18:40 EKG Documentation Completion [RC] STAT Peripheral IV Care [RC] . DIRECTED Chest 1V Frontal [CR] Stat Sodium Chloride 0.9% [Saline Flush] 10 ml FLUSH ASDIRECTED PRN Peripheral IV Insertion Adult [OM.PC] Stat 02/24/20 18:55 PRO B-TYPE NATRIUR PEPT,BNPPRO [CHEM] Stat 02/24/20 19:54 Holter Monitor 48 Hours [RC] .PRN
--- NOTE | 2020-02-25 08:43 | CR ---
PROCEDURE INFORMATION: Exam: XR Chest, 1 View Exam date and time: 02/24/2020 6:27 PM Age: 39 years old Clinical indication: Chest pain; Type not specified TECHNIQUE: Imaging protocol: XR of the chest Views: 1 view. COMPARISON: DX Chest 2V 10/07/2019 1:36 AM FINDINGS: Lungs: Unremarkable. No consolidation. Pleural space: Unremarkable. No pleural effusion. No pneumothorax. Heart/Mediastinum: Unremarkable. No cardiomegaly. Bones/joints: Unremarkable. IMPRESSION: 1. No acute findings. 2. No change. Thank you for allowing us to participate in the care of your patient. Dictated and Authenticated by: Edgar Pimentel MD 02/24/2020 8:11 PM Central Time ([place] & [place]) [place]
== END 2020-02-24 20:15 | disposition home or self-care (01) ==
LOC: JD.ED 18:12
DX: I10 Essential (primary) hypertension (principal); R00.0 Tachycardia, unspecified; F17.210 Nicotine dependence, cigarettes, uncomplicated; E66.9 Obesity, unspecified; Z68.30 Body mass index [BMI] 30.0-30.9, adult; Z79.899 Other long term (current) drug therapy
CPT/HCPCS: 36415; 71045; 71045-26; 80053; 83735; 83880; 84484; 85025; 85610; 85730; 93005; 93010; 93225; 93226; 99284; 99285-25

== ENCOUNTER 2020-04-13 22:10 | Emergency (ER) | payer MEDICAID ==
--- NOTE | 2020-04-13 22:48 | EDM.PDOC ---
ED HPI GENERAL MEDICAL PROBLEM - General Chief Complaint: Upper Extremity Injury/Pain Stated Complaint: INJURED LEFT HAND Time Seen by Provider: 04/13/20 22:25 Source of Information: Reports: Patient, RN Notes Reviewed - History of Present Illness INITIAL COMMENTS - FREE TEXT/NARRATIVE: 40 yr old male with injury to L hand. He was pounding with a wooden mallet. He missed the thing he was pounding and hit his L hand. "severe" pain L hand area of injury. 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 Pt diagnosed with pericarditis on 12/05/18. Pt states he had a MA when he was 21. Respiratory History: Reports: SOB Gastrointestinal History: Reports: GERD Genitourinary History: Reports: None Musculoskeletal History: Reports: Back Pain, Chronic, Fracture Neurological History: Reports: Concussion Psychiatric History: Reports: Anxiety, Depression Endocrine/Metabolic History: Reports: Obesity/BMI 30+ Hematologic History: Reports: None Immunologic History: Reports: None Oncologic (Cancer) History: Reports: None Dermatologic History: Reports: Other (See Below) Other Dermatologic History: lumps on forearms, spreading to face - Infectious Disease History Infectious Disease History: Reports: None - Past Surgical History HEENT Surgical History: Reports: Oral Surgery Other HEENT Surgeries/Procedures: wisdom teeth removed. Social & Family History - Family History Family Medical History: No Pertinent Family History - Tobacco Use Tobacco Use Status *Q: Current Status Unknown - Caffeine Use Caffeine Use: Reports: Coffee - Recreational Drug Use Recreational Drug Use: Yes Drug Use in Last 12 Months: Yes Recreational Drug Type: Reports: Marijuana/Hashish Recreational Drug Use Frequency: Daily - Living Situation & Occupation Living situation: Reports: Single, with Significant Other (Girlfriend) Occupation: Unemployed (Laid off) Review of Systems - Review of Systems Review Of Systems: See Below Constitutional: Reports: No Symptoms Respiratory: Reports: No Symptoms Cardiovascular: Reports: No Symptoms GI/Abdominal: Reports: No Symptoms Musculoskeletal: Reports: Joint Pain (radial aspect of L hand) Neurological: Reports: No Symptoms ED EXAM, GENERAL - Physical Exam Exam: See Below General Appearance: Alert, No Apparent Distress Head: Atraumatic Neck: Supple Respiratory/Chest: No Respiratory Distress Extremities: Other (area of mild localized swelling, moderate tendnerss dorsal aspect 2nd MCP of L hand. No visible deformity. Remainder of hand and wrist nontender) Neurological: Alert, Oriented, No Motor/Sensory Deficits Skin Exam: Warm, Dry, Normal Color Course - Vital Signs Last Recorded V/S: Last Vital Signs Temp 97.5 F 04/13/20 22:18 Pulse 94 04/13/20 22:18 Resp 15 04/13/20 22:18 BP 164/104 H 04/13/20 22:18 Pulse Ox 98 04/13/20 22:18 - Orders/Labs/Meds Orders: Active Orders 24 hr Category Date Time Status Hand Comp Min 3V Lt [CR] Stat Exams 04/13/20 22:34 Taken - Re-Assessments/Exams Free Text/Narrative Re-Assessment/Exam: 04/13/20 23:06 X rays no fx Departure - Departure Time of Disposition: 23:03 Disposition: Home, Self-Care 01 Condition: Fair Clinical Impression: Contusion, hand Qualifiers: Encounter type: initial encounter Laterality: left Qualified Code(s): S60.222A - Contusion of left hand, initial encounter - Discharge Information Referrals: Erin Fernandez NP [Primary Care Provider] - Forms: ED Department Discharge Additional Instructions: Alfredo wrap. Ice packs and elevation as needed for swelling. Alternate tylenol and ibuprofen or aleve as needed for discomfort. Have rechecked if not getting back to normal within 5 to 7 days as expected. Sepsis Event Note (ED) - Evaluation Sepsis Screening Result: No Definite Risk - Focused Exam Vital Signs: Vital Signs Temp Pulse Resp BP Pulse Ox 04/13/20 22:18 97.5 F 94 15 164/104 H 98 - My Orders Last 24 Hours: My Active Orders 04/13/20 22:34 Hand Comp Min 3V Lt [CR] Stat - Assessment/Plan Last 24 Hours: My Active Orders 04/13/20 22:34 Hand Comp Min 3V Lt [CR] Stat
--- NOTE | 2020-04-17 10:23 | CR ---
Left hand: 4 views of the left hand were obtained. Comparison: No prior hand study is available. Findings: Joint spaces are fairly well preserved. No acute fracture, dislocation or other bony abnormality is appreciated. Impression: 1. No acute osseous finding is appreciated on left hand exam. Diagnostic code #1
== END 2020-04-13 23:14 | disposition home or self-care (01) ==
LOC: JD.ED 22:10
DX: S60.222A Contusion of left hand, initial encounter (principal); I10 Essential (primary) hypertension; I25.2 Old myocardial infarction; E66.9 Obesity, unspecified; Z68.31 Body mass index [BMI] 31.0-31.9, adult; W22.8XXA Striking against or struck by other objects, initial encounter
CPT/HCPCS: 73130-LT; 99282; 99283

== ENCOUNTER 2020-08-09 18:00 | Emergency (ER) | payer MEDICAID ==
[2020-08-09] MEDS ORDERED: LORazepam 1 MG Tab PO ONE (18:39)
--- NOTE | 2020-08-09 18:41 | EDM.PDOC ---
ED HPI GENERAL MEDICAL PROBLEM - General Chief Complaint: Cardiovascular Problem Stated Complaint: TINGLING IN LEFT HAND/HIGH HEART RATE/SHAKEY Time Seen by Provider: 08/09/20 18:35 Source of Information: Reports: Patient, RN Notes Reviewed History Limitations: Reports: No Limitations - History of Present Illness INITIAL COMMENTS - FREE TEXT/NARRATIVE: Patient is a 40-year-old male presenting to the emergency department with complaints of sense of impending doom, rapid heart rate, and tingling in his left hand. His father is also in the emergency department and he was driving back here to see him when the symptoms began. He reports he does have a history of anxiety for which she takes Lexapro. He is not on any short acting anxiety medications. He denies any significant chest pain but states that he feels like his heart is pounding. On triage, patient was found to be tachycardic at 138, hypertensive at 185/125, respiratory rate 20, oxygen 100% on room air, temperature 99.7 temporal. 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 Pt diagnosed with pericarditis on 12/05/18. Pt states he had a LA when he was 21. Respiratory History: Reports: SOB Gastrointestinal History: Reports: GERD Genitourinary History: Reports: None Musculoskeletal History: Reports: Back Pain, Chronic, Fracture Neurological History: Reports: Concussion Psychiatric History: Reports: Anxiety, Depression Endocrine/Metabolic History: Reports: Obesity/BMI 30+ Hematologic History: Reports: None Immunologic History: Reports: None Oncologic (Cancer) History: Reports: None Dermatologic History: Reports: Other (See Below) Other Dermatologic History: lumps on forearms, spreading to face - Infectious Disease History Infectious Disease History: Reports: None - Past Surgical History HEENT Surgical History: Reports: Oral Surgery Other HEENT Surgeries/Procedures: wisdom teeth removed. Social & Family History - Family History Family Medical History: No Pertinent Family History - Caffeine Use Caffeine Use: Reports: Coffee - Living Situation & Occupation Living situation: Reports: Single, with Significant Other (Girlfriend) Occupation: Unemployed (Laid off) ED ROS GENERAL - Review of Systems Review Of Systems: See Below Constitutional: Reports: No Symptoms HEENT: Reports: No Symptoms Respiratory: Reports: Shortness of Breath Cardiovascular: Reports: Lightheadedness, Palpitations. Denies: Chest Pain Endocrine: Reports: No Symptoms GI/Abdominal: Reports: No Symptoms : Reports: No Symptoms Musculoskeletal: Reports: No Symptoms Skin: Reports: No Symptoms Neurological: Reports: No Symptoms Psychiatric: Reports: Anxiety Hematologic/Lymphatic: Reports: No Symptoms Immunologic: Reports: No Symptoms ED EXAM, GENERAL - Physical Exam Exam: See Below Exam Limited By: No Limitations General Appearance: Alert, Anxious Respiratory/Chest: No Respiratory Distress, Lungs Clear, Normal Breath Sounds, No Accessory Muscle Use, Chest Non-Tender Cardiovascular: Normal Peripheral Pulses, Regular Rate, Rhythm, No Edema, No Gallop, No JVD, No Murmur, No Rub Neurological: Alert, Oriented, CN II-XII Intact, Normal Cognition, Normal Gait, Normal Reflexes, No Motor/Sensory Deficits Psychiatric: Anxious Skin Exam: Warm, Dry, Intact, Normal Color, No Rash #1 Interpretation EKG Date: 08/09/20 Time: 18:49 Rhythm: NSR Rate (Beats/Min): 85 [place]: LAD-Left [place] Deviation P-Wave: Present QRS: Normal ST-T: Other (Normal early repolarization pattern) QT: Normal EKG Interpretation Comments: EKG interpreted by Dr. Farida MD Course - Vital Signs Last Recorded V/S: Last Vital Signs Temp 99.7 F 08/09/20 18:24 Pulse 123 H 08/09/20 18:33 Resp 12 08/09/20 18:33 BP 185/125 H 08/09/20 18:24 Pulse Ox 100 08/09/20 18:33 - Orders/Labs/Meds Labs: Laboratory Tests 08/09/20 08/09/20 Range/Units 18:50 18:50 WBC 7.91 (4.23-9.07) K/mm3 RBC 4.69 (4.63-6.08) M/mm3 Hgb 13.9 (13.7-17.5) gm/dl Hct 40.3 (40.1-51.0) % MCV 85.9 (79.0-92.2) fl MCH 29.6 (25.7-32.2) pg MCHC 34.5 (32.2-35.5) g/dl RDW Std Deviation 39.0 (35.1-43.9) fL Plt Count 245 (163-337) K/mm3 MPV 10.0 (9.4-12.3) fl Neut % (Auto) 53.8 (34.0-67.9) % Lymph % (Auto) 36.2 (21.8-53.1) % [place] % (Auto) 6.8 (5.3-12.2) % Eos % (Auto) 2.8 (0.8-7.0) Baso % (Auto) 0.1 (0.1-1.2) % Neut # (Auto) 4.26 (1.78-5.38) K/mm3 Lymph # (Auto) 2.86 (1.32-3.57) K/mm3 [place] # (Auto) 0.54 (0.30-0.82) K/mm3 Eos # (Auto) 0.22 (0.04-0.54) K/mm3 Baso # (Auto) 0.01 (0.01-0.08) K/mm3 Sodium 140 (136-145) mEq/L Potassium 3.4 L (3.5-5.1) mEq/L Chloride 104 (98-107) mEq/L Carbon Dioxide 23 (21-32) mEq/L Anion Gap 16.4 H (5-15) BUN 20 H (7-18) mg/dL Creatinine 1.2 (0.7-1.3) mg/dL Est Cr Clr Drug Dosing 102.47 mL/min Estimated GFR (MDRD) > 60 (>60) mL/min BUN/Creatinine Ratio 16.7 (14-18) Glucose 108 H (70-99) mg/dL Calcium 8.8 (8.5-10.1) mg/dL Total Bilirubin 0.4 (0.2-1.0) mg/dL AST 45 H (15-37) U/L ALT 58 (16-63) U/L Alkaline Phosphatase 51 (46-116) U/L Troponin I < 0.017 (0.00-0.056) ng/mL Total Protein 8.1 (6.4-8.2) g/dl Albumin 4.4 (3.4-5.0) g/dl Globulin 3.7 gm/dL Albumin/Globulin Ratio 1.2 (1-2) Meds: Medications Discontinued Medications Generic Name Dose Route Start Last Admin Trade Name Freq PRN Reason Stop Dose Admin Lorazepam 1 mg 08/09/20 18:39 08/09/20 18:59 Lorazepam 1 Mg Tab PO 08/09/20 18:40 1 mg ONETIME ONE Administration - Re-Assessments/Exams Free Text/Narrative Re-Assessment/Exam: Patient is a 40-year-old male present to the emergency department after what appears to be a panic attack. He reports he was driving back to the ER to be with his father who is also a patient here when he developed a sense of impending doom, rapid heart rate, shortness of breath, dizziness, and tingling in his extremities. He reports that he was hyperventilating. Does have a history of anxiety for which she takes Lexapro. Initial vital signs obtained in triage show that he was tachycardic at 138, blood pressure was 185/125, respiratory rate 20, oxygen saturation 100% on room air. By the time of my exam, his heart rate had improved into the 90s and blood pressure was down to 165/102. He denies any significant chest pain but states that he felt like his heart was pounding. I have ordered blood work, EKG, chest x-ray, and Ativan 1 mg p.o. 08/09/201939 Hematology was significant for potassium slightly low at 1.4, anion gap 16.4, BUN 20, AST 45. Troponin was negative. EKG shows a normal sinus rhythm at 85. Chest x-ray is unremarkable. Patient is feeling much better. He is ready to be discharged home. Discharge instructions as documented. Departure - Departure Time of Disposition: 19:42 Disposition: Home, Self-Care 01 Condition: Good Clinical Impression: Panic attack Prescriptions: LORazepam [Ativan] 0.5 - 1 mg PO Q6H PRN #5 tab PRN Reason: Anxiety Instructions: Panic Attack, Managing Anxiety, Adult Referrals: Erin Fernandez NP [Primary Care Provider] - Forms: ED Department Discharge Additional Instructions: You were seen in the emergency department after experiencing panic attack. While in the ER, you received Ativan which did improve your symptoms. A short course of Ativan has been provided. Use this as needed if you feel an anxiety attack coming on. Follow-up with your primary care provider at her next visit. Sepsis Event Note (ED) - Evaluation Sepsis Screening Result: No Definite Risk
--- NOTE | 2020-08-10 06:49 | CR ---
Chest: Portable view of the chest was obtained. Comparison: Prior chest x-ray of 10/07/19. Heart size and mediastinum are within normal limits. Lungs are clear with no acute parenchymal change being seen. No acute osseous abnormality is appreciated. Impression: 1. Nothing acute is appreciated on portable chest x-ray. Diagnostic code #1
== END 2020-08-09 20:13 | disposition home or self-care (01) ==
LOC: JD.ED 18:00 → SUPCPDRO 18:00 → JD.ED 20:13
DX: F41.0 Panic disorder [episodic paroxysmal anxiety] (principal); E66.9 Obesity, unspecified; I25.2 Old myocardial infarction; I10 Essential (primary) hypertension; Z68.31 Body mass index [BMI] 31.0-31.9, adult; Z79.899 Other long term (current) drug therapy
CPT/HCPCS: 36415; 71045; 80053; 84484; 85025; 93005; 99285; A9270; 99283

== ENCOUNTER 2021-11-01 14:15 | Emergency (ER) | payer MEDICAID ==
[2021-11-01] MEDS ORDERED: Sodium Chloride 0.9% 10 ML Syringe FLUSH PRN (14:41)
[2021-11-01] MEDS ORDERED: HYDROmorphone 1 MG/ML Syringe IVPUSH ONE (14:43)
== END 2021-11-01 17:05 | disposition home or self-care (01) ==
LOC: JD.ED 14:15
DX: R07.89 Other chest pain (principal); R21 Rash and other nonspecific skin eruption; I10 Essential (primary) hypertension; E78.00 Pure hypercholesterolemia, unspecified; K21.9 Gastro-esophageal reflux disease without esophagitis; E66.9 Obesity, unspecified; Z68.32 Body mass index [BMI] 32.0-32.9, adult; Z79.899 Other long term (current) drug therapy
CPT/HCPCS: 36415; 71045; 80053; 84484; 85025; 85379; 93005; 96374; 99285; J1170; J3490

== ENCOUNTER 2021-12-29 20:26 | Emergency (ER) | payer MEDICAID | END 2021-12-29 22:30 | LOC: JD.ED 20:26 | DX: F41.0 Panic disorder [episodic paroxysmal anxiety] (principal) | CPT/HCPCS: 93005; 99283 ==

== ENCOUNTER 2022-02-07 20:25 | Emergency (ER) | payer MEDICAID ==
[2022-02-07] MEDS ORDERED: Sodium Chloride 0.9% 10 ML Syringe FLUSH PRN (20:49)
[2022-02-07] MEDS ORDERED: LORazepam 2 MG/ML SDV IVPUSH ONE (20:51)
[2022-02-07 21:41] LABS: ESTIMATED GFR 88 mL/min (>60)
== END 2022-02-07 22:49 | disposition home or self-care (01) ==
LOC: JD.ED 20:25
DX: R00.2 Palpitations (principal); R51.9 Headache, unspecified; R25.9 Unspecified abnormal involuntary movements; R00.0 Tachycardia, unspecified; I10 Essential (primary) hypertension; I25.2 Old myocardial infarction; E66.9 Obesity, unspecified; Z79.899 Other long term (current) drug therapy
CPT/HCPCS: 36415; 70450; 80053; 84443; 84484; 85025; 85379; 93005; 96374; 99285; J2060; J3490

== ENCOUNTER 2022-07-12 21:18 | Emergency (ER) | payer MEDICAID | END 2022-07-12 23:07 | disposition home or self-care (01) | LOC: JD.ED 21:18 | DX: R07.89 Other chest pain (principal); E78.00 Pure hypercholesterolemia, unspecified; I10 Essential (primary) hypertension; I25.2 Old myocardial infarction; F17.210 Nicotine dependence, cigarettes, uncomplicated; E66.9 Obesity, unspecified; Z68.35 Body mass index [BMI] 35.0-35.9, adult; Z79.899 Other long term (current) drug therapy | CPT/HCPCS: 36415; 71045; 71045-26; 80053; 83735; 83880; 84484; 85025; 85379; 85610; 85730; 86140; 93005; 93010; 93246; 99284; 99285 ==

== ENCOUNTER 2022-07-19 01:32 | Emergency (ER) | payer MEDICAID | END 2022-07-19 04:52 | disposition home or self-care (01) | LOC: JD.ED 01:32 | DX: R20.2 Paresthesia of skin (principal); I10 Essential (primary) hypertension; E66.9 Obesity, unspecified; F17.290 Nicotine dependence, other tobacco product, uncomplicated; Z68.36 Body mass index [BMI] 36.0-36.9, adult; Z79.899 Other long term (current) drug therapy | CPT/HCPCS: 36415; 36600; 70450; 70450-26; 70496; 70496-26; 70498; 70498-26; 80053; 82803; 82947; 84484; 85025; 85379; 85610; 85730; 93005; 93010; 99284 ==

== ENCOUNTER 2023-06-18 21:08 | Emergency (ER) | payer MEDICAID ==
[2023-06-18 21:31] LABS: BASOPHILS PERCENT AUTO 0.5 % (0.0-1.0); EOSINOPHILS ABSOLUTE AUTO 0.3 K/mm3 (0.0-0.4); EOSINOPHILS PERCENT AUTO 3.4 % (0.0-6.0); HEMATOCRIT 40.1 % (42.0-52.0); HEMOGLOBIN 13.6 gm/dl (14.0-18.0); IMMATURE GRAN ABSOLUTE AUTO 0.02 K/mm3 (0.00-0.05); IMMATURE GRAN PERCENT AUTO 0.2 % (0.0-0.4); LYMPHOCYTES ABSOLUTE AUTO 3.3 K/mm3 (1.0-4.8); LYMPHOCYTES PERCENT AUTO 39.4 % (24.0-44.0); MEAN CORPUSCULAR HEMOGLOBIN 29.1 pg (28.0-32.0); MEAN CORPUSCULAR HGB CONC 33.9 g/dl (32.0-36.0); MEAN CORPUSCULAR VOLUME 85.9 fl (83.0-99.0); MEAN PLATELET VOLUME 9.5 fl (9.4-12.4); MONOCYTES ABSOLUTE AUTO 0.5 K/mm3 (0.0-0.8); MONOCYTES PERCENT AUTO 6.3 % (0.0-8.0); NEUTROPHILS ABSOLUTE AUTO 4.3 K/mm3 (1.8-7.7); NEUTROPHILS PERCENT AUTO 50.2 % (41.0-71.0); PLATELET COUNT,PLT 249 K/mm3 (150-400); RED BLOOD CELL COUNT 4.67 M/mm3 (4.52-5.90); WHITE BLOOD CELL COUNT,WBC 8.48 K/mm3 (3.9-11.3)
[2023-06-18] MEDS: Aspirin 81 MG Tab.Chew PO ONE (21:47)
[2023-06-18] MEDS: LORazepam 2 MG/ML SDV IVPUSH ONE (21:47)
[2023-06-18] MEDS: Sodium Chloride 0.9% 10 ML Syringe FLUSH PRN (21:52)
[2023-06-18 21:53] LABS: ALBUMIN 4.1 g/dl (3.4-5.0); ANION GAP 11.6 (5-15); BILIRUBIN TOTAL 0.5 mg/dL (0.2-1.0); BUN/CREATININE RATIO 13.8 (14-18); C-REACTIVE PROTEIN 1.68 mg/dL (<0.30); CALCIUM 8.8 mg/dL (8.5-10.1); CREATININE 1.3 mg/dL (0.7-1.3); EST CRCL DRUG DOSING (CG) 91.81 mL/min; POTASSIUM,K 3.6 mEq/L (3.5-5.1); PROTEIN TOTAL,TP 8.1 g/dl (6.4-8.2)
[2023-06-18 22:36] LABS: TSH 3.231 uIU/mL (0.358-3.74)
== END 2023-06-18 23:55 | disposition home or self-care (01) ==
LOC: JD.ED 21:08
DX: R07.89 Other chest pain (principal); R00.2 Palpitations; I10 Essential (primary) hypertension; E66.9 Obesity, unspecified; Z79.899 Other long term (current) drug therapy; Z86.19 Personal history of other infectious and parasitic diseases; Z68.39 Body mass index [BMI] 39.0-39.9, adult
CPT/HCPCS: 36415; 71046; 80053; 84443; 84484; 85025; 85379; 86140; 93005; 96374; 99285; A9270; J2060; J3490; 93010; 99284

== ENCOUNTER 2023-10-13 07:53 | Emergency (ER) | payer MEDICAID ==
[2023-10-13] MEDS ORDERED: Lidocaine 2% 11 ML Jelly Filled Syringe ONE (08:46)
[2023-10-13] MEDS ORDERED: Magnesium Citrate Solution 296 ML Bottle ONE (10:21)
[2023-10-13] MEDS: Lidocaine 2% 11 ML Jelly Filled Syringe MUCMEM ONE (14:40)
[2023-10-13] MEDS: Magnesium Citrate Solution 296 ML Bottle PO ONE (14:40)
== END 2023-10-13 10:25 | disposition home or self-care (01) ==
LOC: JD.ED 07:53
DX: K59.01 Slow transit constipation (principal); K62.5 Hemorrhage of anus and rectum; K60.2 Anal fissure, unspecified; I10 Essential (primary) hypertension; K21.9 Gastro-esophageal reflux disease without esophagitis; E66.9 Obesity, unspecified; Z79.899 Other long term (current) drug therapy; Z68.38 Body mass index [BMI] 38.0-38.9, adult
CPT/HCPCS: 74018; 74018-26; 82270; 99284

== ENCOUNTER 2023-11-14 07:00 | Day surgery (SDC) | payer MEDICAID ==
[~2023-11-14 07:00] MED LIST: Ketamine 200 MG/20 ML MDV ONE; Midazolam 1 MG/ML 2 ML SDV ONE; Ondansetron 4 MG/2 ML SDV ONE; Phenylephrine 1% 10 MG/ML SDV ONE; Propofol 200 MG/20 ML SDV ONE; Rocuronium 50 MG/5 ML Vial ONE; Sodium Chloride 0.9% 10 ML Syringe FLUSH PRN; Sodium Chloride 0.9% 10 ML Syringe FLUSH SCH; fentaNYL 100 MCG/2 ML SDV ONE
[2023-11-14] MEDS ORDERED: Lactated Ringers 1,000 ML IV ONE (07:01)
[2023-11-14] MEDS ORDERED: Lidocaine 1% 10 ML MDV ONE (07:14)
[2023-11-14] MEDS ORDERED: Propofol 200 MG/20 ML SDV ONE (07:20)
[2023-11-14] MEDS: Lactated Ringers 1,000 ML IV SCH (07:20)
[2023-11-14] MEDS ORDERED: ceFAZolin 2 GM Vial ONE ×2 (08:00)
[2023-11-14] MEDS: Bupivacaine 0.5% 30 ML SDV ONE (08:24)
[2023-11-14] MEDS ORDERED: Ondansetron 4 MG/2 ML SDV IVPUSH PRN (08:48)
[2023-11-14] MEDS ORDERED: Rocuronium 50 MG/5 ML Vial ONE (09:00)
[2023-11-14] MEDS ORDERED: Sugammadex Sodium 200 MG/2 ML VIAL IV ONE ×2 (09:00→09:24)
[2023-11-14] MEDS ORDERED: Ketorolac 30 MG/ML SDV ONE (09:00)
[2023-11-14] MEDS: HYDROmorphone 0.5 MG/0.5 ML Syringe IVPUSH PRN (09:39)
[2023-11-14] MEDS ORDERED: Ropivacaine 0.5% 5 MG/ML 30 ML SDV ONE (09:47)
[2023-11-14] MEDS ORDERED: Lidocaine 2% 5 ML SDV ONE (09:49)
[2023-11-14] MEDS: Haloperidol Lactate 5 MG/ML SDV IVPUSH ONE (10:05)
[2023-11-14] MEDS: fentaNYL 100 MCG/2 ML SDV IVPUSH PRN (10:20)
[2023-11-14] MEDS ORDERED: Acetaminophen/oxyCODONE 325-5 MG Tab PO PRN (10:23)
== END 2023-11-14 12:35 | disposition home or self-care (01) ==
LOC: JD.SDS 07:00
PROVIDERS: ATTEND Podiatrist Foot & Ankle Surgery
DX: M62.461 Contracture of muscle, right lower leg (principal); M72.2 Plantar fascial fibromatosis; M77.31 Calcaneal spur, right foot; M79.671 Pain in right foot; I10 Essential (primary) hypertension; F41.9 Anxiety disorder, unspecified; J45.909 Unspecified asthma, uncomplicated; K21.9 Gastro-esophageal reflux disease without esophagitis; E66.9 Obesity, unspecified; G47.33 Obstructive sleep apnea (adult) (pediatric); Z87.891 Personal history of nicotine dependence; Z68.39 Body mass index [BMI] 39.0-39.9, adult; Z79.899 Other long term (current) drug therapy
CPT/HCPCS: 27687; 28119; J0665; J0690; J1170; J1630; J1885; J2250; J2405; J2704; J2795; J3010; J3490; J7120; J2371

== ENCOUNTER 2024-01-09 05:20 | Emergency (ER) | payer MEDICAID ==
[2024-01-09] MEDS ORDERED: Sodium Chloride 0.9% 10 ML Syringe FLUSH PRN (05:33)
[2024-01-09 05:43] LABS: BASOPHILS ABSOLUTE AUTO 0.1 K/mm3 (0.0-0.2); BASOPHILS PERCENT AUTO 0.8 % (0.0-1.0); EOSINOPHILS ABSOLUTE AUTO 0.3 K/mm3 (0.0-0.4); EOSINOPHILS PERCENT AUTO 3.8 % (0.0-6.0); HEMATOCRIT 43.1 % (42.0-52.0); HEMOGLOBIN 14.1 gm/dl (14.0-18.0); IMMATURE GRAN ABSOLUTE AUTO 0.03 K/mm3 (0.00-0.05); IMMATURE GRAN PERCENT AUTO 0.4 % (0.0-0.4); LYMPHOCYTES ABSOLUTE AUTO 3.6 K/mm3 (1.0-4.8); LYMPHOCYTES PERCENT AUTO 46.7 % (24.0-44.0); MEAN CORPUSCULAR HEMOGLOBIN 28.3 pg (28.0-32.0); MEAN CORPUSCULAR HGB CONC 32.7 g/dl (32.0-36.0); MEAN CORPUSCULAR VOLUME 86.5 fl (83.0-99.0); MEAN PLATELET VOLUME 9.8 fl (9.4-12.4); MONOCYTES ABSOLUTE AUTO 0.6 K/mm3 (0.0-0.8); MONOCYTES PERCENT AUTO 7.9 % (0.0-8.0); NEUTROPHILS ABSOLUTE AUTO 3.1 K/mm3 (1.8-7.7); NEUTROPHILS PERCENT AUTO 40.4 % (41.0-71.0); PLATELET COUNT,PLT 300 K/mm3 (150-400); RED BLOOD CELL COUNT 4.98 M/mm3 (4.52-5.90); WHITE BLOOD CELL COUNT,WBC 7.73 K/mm3 (3.9-11.3)
[2024-01-09] MEDS: Aspirin 81 MG Tab.Chew PO ONE (05:44)
[2024-01-09] MEDS: Metoprolol Tartrate 5 MG/5 ML SDV IVPUSH ONE (05:47)
[2024-01-09 06:02] LABS: ALBUMIN 3.9 g/dl (3.4-5.0); BILIRUBIN TOTAL 0.4 mg/dL (0.2-1.0); BUN/CREATININE RATIO 11.7 (14-18); CALCIUM 9.2 mg/dL (8.5-10.1); CREATININE 1.2 mg/dL (0.7-1.3); EST CRCL DRUG DOSING (CG) 99.46 mL/min; MAGNESIUM 2.2 mg/dL (1.8-2.4); PROTEIN TOTAL,TP 7.9 g/dl (6.4-8.2)
== END 2024-01-09 09:31 | disposition home or self-care (01) ==
LOC: JD.ED 05:20
DX: R07.9 Chest pain, unspecified (principal); I10 Essential (primary) hypertension; K21.9 Gastro-esophageal reflux disease without esophagitis; E66.9 Obesity, unspecified; Z68.41 Body mass index [BMI] 40.0-44.9, adult; Z79.51 Long term (current) use of inhaled steroids; Z79.899 Other long term (current) drug therapy
CPT/HCPCS: 36415; 71046; 80053; 83690; 83735; 83880; 84484; 85025; 93005; 99285; A9270; 93010; 99284

== ENCOUNTER 2024-01-30 03:41 | Emergency (ER) | payer MEDICAID ==
[2024-01-30] MEDS ORDERED: Sodium Chloride 0.9% 10 ML Syringe FLUSH PRN (03:54)
[2024-01-30 04:37] LABS: BASOPHILS ABSOLUTE AUTO 0.1 K/mm3 (0.0-0.2); BASOPHILS PERCENT AUTO 0.7 % (0.0-1.0); EOSINOPHILS ABSOLUTE AUTO 0.2 K/mm3 (0.0-0.4); HEMATOCRIT 38.4 % (42.0-52.0); HEMOGLOBIN 12.9 gm/dl (14.0-18.0); IMMATURE GRAN ABSOLUTE AUTO 0.05 K/mm3 (0.00-0.05); IMMATURE GRAN PERCENT AUTO 0.5 % (0.0-0.4); LYMPHOCYTES ABSOLUTE AUTO 2.9 K/mm3 (1.0-4.8); MEAN CORPUSCULAR HEMOGLOBIN 28.6 pg (28.0-32.0); MEAN CORPUSCULAR HGB CONC 33.6 g/dl (32.0-36.0); MEAN CORPUSCULAR VOLUME 85.1 fl (83.0-99.0); MEAN PLATELET VOLUME 9.7 fl (9.4-12.4); NEUTROPHILS ABSOLUTE AUTO 6.8 K/mm3 (1.8-7.7); NEUTROPHILS PERCENT AUTO 61.8 % (41.0-71.0); PLATELET COUNT,PLT 263 K/mm3 (150-400); RED BLOOD CELL COUNT 4.51 M/mm3 (4.52-5.90); WHITE BLOOD CELL COUNT,WBC 11.03 K/mm3 (3.9-11.3)
[2024-01-30] MEDS: Nicotine 21 MG/24 Hr Patch TRDERM ONE (04:43)
[2024-01-30] MEDS: HYDROmorphone 0.5 MG/0.5 ML Syringe IVPUSH ONE (04:44)
[2024-01-30 05:10] LABS: A/G RATIO 1.1 (1-2); ANION GAP 12.8 (5-15); BILIRUBIN TOTAL 0.6 mg/dL (0.2-1.0); BUN/CREATININE RATIO 22.5 (14-18); CALCIUM 9.8 mg/dL (8.5-10.1); CREATININE 1.2 mg/dL (0.7-1.3); EST CRCL DRUG DOSING (CG) 99.46 mL/min; MAGNESIUM 1.9 mg/dL (1.8-2.4); POTASSIUM,K 3.8 mEq/L (3.5-5.1); PROTEIN TOTAL,TP 7.7 g/dl (6.4-8.2)
== END 2024-01-30 06:40 | disposition home or self-care (01) ==
LOC: JD.ED 03:41
DX: R07.89 Other chest pain (principal); M79.671 Pain in right foot; I10 Essential (primary) hypertension; K21.9 Gastro-esophageal reflux disease without esophagitis; E66.9 Obesity, unspecified; F17.210 Nicotine dependence, cigarettes, uncomplicated; Z86.16 Personal history of COVID-19; Z79.51 Long term (current) use of inhaled steroids; Z79.891 Long term (current) use of opiate analgesic; Z79.899 Other long term (current) drug therapy
CPT/HCPCS: 36415; 71045; 80053; 83735; 83880; 84484; 85025; 85379; 93005; 96374; 99285; A9270; J1171; 93010; 99284

== ENCOUNTER 2024-04-27 12:34 | Emergency (ER) | payer MEDICAID ==
[2024-04-27] MEDS ORDERED: Sodium Chloride 0.9% 10 ML Syringe FLUSH PRN (13:38)
[2024-04-27] MEDS: Ketorolac 15 MG/ML SDV IVPUSH ONE (14:48)
[2024-04-27] MEDS: Ketorolac 30 MG/ML SDV IM ONE (14:52)
== END 2024-04-27 15:00 | disposition home or self-care (01) ==
LOC: JD.ED 12:34
DX: M54.2 Cervicalgia (principal); I10 Essential (primary) hypertension; Z79.899 Other long term (current) drug therapy; Z86.16 Personal history of COVID-19
CPT/HCPCS: 72125; 96372; 99283; J1885

== ENCOUNTER 2024-05-05 09:11 | Emergency (ER) | payer MEDICAID ==
[2024-05-05] MEDS: Penicillin V Potassium 500 MG Tab PO ONE (09:45)
[2024-05-05] MEDS: Ketorolac 60 MG/2 ML SDV IM ONE (09:46)
[2024-05-05] MEDS: HYDROmorphone 1 MG/ML Syringe IM ONE (09:52)
== END 2024-05-05 10:12 | disposition home or self-care (01) ==
LOC: JD.ED 09:11
DX: K04.7 Periapical abscess without sinus (principal); I10 Essential (primary) hypertension; K21.9 Gastro-esophageal reflux disease without esophagitis; E66.9 Obesity, unspecified; Z68.38 Body mass index [BMI] 38.0-38.9, adult; Z86.16 Personal history of COVID-19; Z79.51 Long term (current) use of inhaled steroids; Z79.899 Other long term (current) drug therapy
CPT/HCPCS: 96372; 99283; A9270; J1171; J1885